=== PATIENT | female | born 1945 | race Caucasian/White ===

== ENCOUNTER 2016-08-07 13:41 | Inpatient (IN) | payer MEDICARE ==
[~2016-08-07] VITALS: Ht 165.1 cm; Wt 90.5 kg
[2016-10-03] MEDS ORDERED: LEVO50TA4 PO (08:17)
[2016-10-03] MEDS ORDERED: TRIA37.53 PO (08:17)
[2016-10-03] MEDS ORDERED: CITA40TA4 PO (08:18)
[2016-10-03] MEDS ORDERED: BIOT10TA PO (08:20)
[2016-10-03] MEDS ORDERED: ZANT150T2 PO (08:21)
[2016-10-03] MEDS ORDERED: LOPE2CAP PO (08:25)
[2016-10-03] MEDS ORDERED: ZOFR4TAB PO (08:29)
[2016-10-03] MEDS ORDERED: LORA-373 PO (08:30)
[2016-12-16] MEDS ORDERED: VITA500T49 PO (11:23)
[2016-12-16] MEDS ORDERED: VITA100T50 PO ×2 (11:23→11:26)
[2016-12-16] MEDS ORDERED: POTA550T2 PO (11:25)
[2016-12-16] MEDS ORDERED: FERR1TAB58 PO (11:25)
[2016-12-16] MEDS ORDERED: BENT20TA PO (11:28)
[2016-12-16] MEDS ORDERED: OXYC1CAP PO (11:29)
[2016-12-17] VITALS (7 sets, daily range): BP systolic 114–150; BP diastolic 54–68; PULSE 90–105; RESP 16–18; TEMP 96.6–99.1; O2SAT 97–99
[2016-12-17] MEDS ORDERED: ROPIVACAINE 0.5% PF INJ 30 ML VIAL NB ONE (08:10)
--- NOTE | 2016-12-17 08:18 | MH ---
cc: ARIA SELLERS DATE OF ADMISSION: 12/17/2016 ADMISSION DIAGNOSIS Osteoarthritis left knee. HISTORY This is a 71-year-old female with significant left knee pain. Investigative studies showed evidence of extensive arthritis left knee with a marked deformity. Despite conservative care the patient is painful and symptomatic. She presents for surgical treatment. PAST MEDICAL HISTORY, SOCIAL HISTORY, FAMILY HISTORY, REVIEW OF SYSTEMS See attached notes. PHYSICAL EXAMINATION General: Average build female in moderate distress with her left knee. HEENT: Normocephalic, atraumatic. Pupils equal, round, reactive to light and accommodation. Extraocular motions intact. Neck: Supple. Chest: Clear. Heart: Regular rate and rhythm. Abdomen: Soft, nontender with normoactive bowel sounds. Musculoskeletal: Examination of the left knee shows pain with range of motion, mild deformity. Crepitus with range of motion. Neurologic and Vascular Examination: Within normal limits. IMPRESSION Osteoarthritis left knee. PLAN 1. Left total knee replacement arthroplasty. 2. Need of 2 units fresh-frozen plasma preop per Hematology/Oncology CONSENT There are risks with surgery including infection, bleeding, loss of motion, continued pain, need for further surgery, neurologic and vascular injury. The patient understands these issues and wishes to press on with the surgery as outlined above. MD AARON Silva/KATI /10:56 PM /8:12 AM
[2016-12-17] MEDS: EXPAREL PERI-ARTICULAR INJECTION (TOTAL VOL. 60 ML) P-ARTICULR SCH ×4 (09:00→13:29)
[2016-12-17] MEDS: SODIUM CHLORIDE 0.9% IV SCH ×2 (09:00→12:48)
[2016-12-17] MEDS: POVIDONE IODINE 7.5% SCRUB 118 ML BOTTLE TOP SCH (09:00)
[2016-12-17] MEDS ORDERED: INSULIN HUMAN REGULAR 1,000 UNITS/10 ML VIAL SQ PRN (09:00)
[2016-12-17] MEDS ORDERED: VANCOMYCIN 1000 MG/NS 250 ML (for <70 kg) IV SCH ×2 (09:00)
[2016-12-17] MEDS: TRANEXAMIC ACID IV SCH ×2 (09:00→12:48)
[2016-12-17] MEDS ORDERED: METOPROLOL TARTRATE 25 MG TAB PO PRN (09:00)
[2016-12-17] MEDS ORDERED: SODIUM CHLORID 0.9% 500 ML IV SCH (09:00)
[2016-12-17] MEDS ORDERED: LACTATED RINGER'S 1000 ML IV SCH (09:00)
[2016-12-17] MEDS ORDERED: ceFAZolin 2 GM PREMIX 50 ML IV SCH (09:00)
[2016-12-17] MEDS ORDERED: GENTAMICIN SULFATE 80 MG/2 ML VIAL ONE (10:41)
[2016-12-17 12:03] LABS: AUTOMATED NEUTROPHIL # 2.6 TH/MM3 (1.8-7.7); BASOPHIL % 0.4 % (0.0-2.0); EOSINOPHIL # 0.1 TH/MM3 (0-0.4); EOSINOPHIL % 1.5 % (0.0-4.0); LYMPH % 18.1 % (9.0-44.0); LYMPHOCYTE # 0.7 TH/MM3 (1.0-4.8); MEAN CELL VOLUME 97.4 FL (80.0-100.0); MEAN CORPUSCULAR HEMOGLOBIN 33.7 PG (27.0-34.0); MEAN CORPUSCULAR HGB CONC 34.6 % (32.0-36.0); MONO % 8.3 % (0.0-8.0); NEUT % 71.7 % (16.0-70.0); RED BLOOD COUNT 3.36 MIL/MM3 (4.00-5.30); RED CELL DISTRIBUTION WIDTH 15.1 % (11.6-17.2); WHITE BLOOD COUNT 3.6 TH/MM3 (4.0-11.0)
[2016-12-17 12:04] LABS: HEMO FLAGS AUTO DIFF
[2016-12-17 12:08] LABS: PLATELET COUNT 73 TH/MM3 (150-450)
[2016-12-17 12:09] LABS: HEMATOCRIT 32.7 % (35.0-46.0)
[2016-12-17 12:15] LABS: APTT (PATIENT) 33.1 SEC (24.3-30.1); INTERNATIONAL NORMALIZED RATIO 1.3 RATIO; PROTHROMBIN TIME - PATIENT 14.7 SEC (9.8-11.6)
[2016-12-17] MEDS ORDERED: FAMOTIDINE 20 MG/2 ML VIAL ONE (12:18)
[2016-12-17] MEDS ORDERED: MIDAZOLAM HCL 2 MG/2 ML VIAL ONE (12:18)
[2016-12-17 12:48] LABS: PLATELET ESTIMATE SMEAR LOW (NORMAL); PLATELET MORPHOLOGY NORMAL (NORMAL); SCAN/DIFF AUTO DIFF CONFIRMED
[2016-12-17] MEDS ORDERED: NEOSTIGMINE 3 MG/3 ML SYR IV ONE (13:25)
[2016-12-17] MEDS ORDERED: ONDANSETRON HCL 4 MG/2 ML VIAL IV PUSH ONE (13:25)
[2016-12-17] MEDS ORDERED: PROPOFOL 200 MG/20 ML AMP IV ONE (13:25)
[2016-12-17] MEDS ORDERED: LACTATED RINGER'S 1000 ML INJ 1,000 ML IV ONE (13:25)
--- NOTE | 2016-12-17 13:50 | EKG ---
Date Performed: 12/17/2016 Time Performed: 10:17:03 PTAGE: 71 years EKG: Sinus rhythm NONSPECIFIC T-WAVE ABNORMALITY BORDERLINE ECG Compared to prior tracing no significant change PREVIOUS TRACING : 09/04/2014 20.44 DOCTOR: Rosy Rubio Interpretating Date/Time 12/17/2016 13:48:23
[2016-12-17] MEDS ORDERED: ACETAMINOPHEN/HYDROcodone 325 MG/10 MG TAB PO PRN ×2 (15:00)
[2016-12-17] MEDS ORDERED: SODIUM CHLORIDE 0.9% FLUSH 5 ML FLUSH IVF PRN (15:00)
[2016-12-17] MEDS ORDERED: ALUMINUM/MAGNESIUM/SIMETH 30 ML CUP PO PRN (15:00)
[2016-12-17] MEDS ORDERED: MAGNESIUM HYDROXIDE SUSP 30 ML CUP PO PRN (15:00)
[2016-12-17] MEDS ORDERED: TEMAZEPAM 15 MG CAP PO PRN (15:00)
[2016-12-17] MEDS ORDERED: DICYCLOMINE HCL 20 MG TAB PO PRN (15:00)
[2016-12-17] MEDS ORDERED: ONDANSETRON HCL 4 MG/2 ML VIAL IVP PRN (15:00)
[2016-12-17] MEDS ORDERED: LORazepam 0.5 MG TAB PO PRN (15:00)
[2016-12-17] MEDS ORDERED: MORPHINE SULFATE 30 MG/30 ML PCA IV SCH (15:00)
[2016-12-17] MEDS ORDERED: NALOXONE HCL 0.4 MG/ML AMP IV PRN (15:00)
[2016-12-17] MEDS ORDERED: MISCELLANEOUS NURSING INFORMATION XX PRN (15:00)
[2016-12-17] MEDS ORDERED: LOPERAMIDE HCL 2 MG CAP PO PRN (15:00)
[2016-12-17] MEDS ORDERED: BISACODYL 10 MG SUPP PR PRN (15:00)
[2016-12-17] MEDS ORDERED: MORPHINE SULFATE 8 MG/ML INJ IV PUSH PRN (15:00)
--- NOTE | 2016-12-17 15:02 | PD.OP ---
cc: Ez Stallworth MD Operative Report Date of Surgery: Dec 17, 2016 Preoperative Diagnosis: Osteoarthritis left knee, severe Postoperative Diagnosis: Same Procedure: Left total knee replacement arthroplasty Anesthesia: Gen. Surgeon: Ez Stallworth Recreational Vehicle Repairer(s): VIRGINIA Olsen Operation and Findings: EBL: 200 cc INDICATION: This patient presents with long-standing arthritis of the knee. Attachment record documents conservative measures. The patient now presents for surgical treatment. NOTE: Brynn Olsen PA-C was present for the entire surgical procedure as my assistant operator. In my medical opinion her skill and care was necessary for proper management of this patient. TOURNIQUET TIME: 64 minutes COMPANY: [employer] FEMUR: Size 4, posterior cruciate retaining, left TIBIA: Size 3, fixed bearing PATELLA: 32 mm POLYETHYLENE INSERT: 13, plus 1 mm PROCEDURE: This patient was brought the operating room and anesthetized in the supine position. The patient was positioned supine on the table. The tourniquet was placed about the thigh, and the leg was scrubbed with alcohol followed by Hibiclens followed by ChloraPrep and draped sterilely. A timeout was done, and antibiotics were given. After exsanguination the tourniquet was inflated to 250 mmHg. An anterior incision was made and a median parapatellar arthrotomy was performed. The patella was released laterally and subluxed allowing freehand cut of the patella which was then sized. A metal cap was placed over the exposed patellar surface for protection. A airplane pilot commercial hole was placed in the distal femur allowing a 4 valgus cut removing 10 mm from the distal femur. Anterior posterior and chamfer cuts were made. The posterior stabilize osteotomy was made. The attention was directed to the tibia. Retractors were positioned. The external alignment guide was used allowing the lateral tibia to be used as referencing guide and cut utilizing an oscillating saw taking care to avoid any injury to the surrounding soft tissues. This was sized properly. Trial reduction showed that the insert fit nicely. The patient had range of motion extension 0 flexion 120. A medial release was not necessary. The bony surfaces prepared. On the back table 2 packets of methylmethacrylate were mixed. The components were cemented. Excess cement was removed. The tourniquet let down and hemostasis was controlled. The final plastic insert was inserted. Range of motion was the same as previously noted. A drain was brought through a separate stab incision. The arthrotomy was repaired with interrupted #1 Vicryl suture, subcutaneous tissue 2-0 Vicryl suture and skin with metallic rigoberto A sterile dressing was applied. Sponge counts, needle counts and instrument counts were all correct. The patient tolerated procedure well and was taken to recovery in satisfactory condition. FINDINGS: The patient had severe arthritis of the left knee. The final solution was excellent. Range of motion was excellent. No complication was appreciated Ez Stallworth MD Dec 17, 2016 15:02
[2016-12-17] MEDS ORDERED: XARE10TA PO (15:05)
[2016-12-17] MEDS ORDERED: OXYC-395 PO (15:05)
[2016-12-17] MEDS ORDERED: Post-op Orders (for Pharmacy) MISC XX ONE (15:36)
[2016-12-17] MEDS: LACTATED RINGER'S 1000 ML INJ 1,000 ML IV SCH (15:36)
[2016-12-17] MEDS ORDERED: DO NOT ADM ANY ANTICOAGULANT DRUGS XX PRN (15:45)
[2016-12-17] MEDS ORDERED: MORPHINE SULFATE 4 MG/ML INJ ONE (15:48)
[2016-12-17] MEDS ORDERED: fentaNYL CITRATE 250 MCG/5 ML AMP ONE ×2 (15:48)
--- NOTE | 2016-12-17 16:30 | RADRPT ---
EXAM DATE/TIME: 12/17/2016 15:45 [facility] COMPARISON: No previous studies available for comparison. INDICATIONS : Post op left knee replacement. MEDICAL HISTORY: None. SURGICAL HISTORY: Total knee replacement, left. ENCOUNTER: Initial ACUITY: 1 day PAIN SCORE: Non-responsive. LOCATION: Left knee. FINDINGS/ CONCLUSION: Two view left knee demonstrate patient has had total knee arthroplasty with good position. Surgical drain overlies the suprapatellar bursa. There is no complication. There is no fracture. Jason White MD on December 17, 2016 at 16:27 Board Certified Radiologist. This report was verified electronically.
[2016-12-17] MEDS: SODIUM CHLORIDE 0.9% FLUSH 5 ML FLUSH IVF SCH (21:00)
[2016-12-17] MEDS: PCA - TOTAL MG MORPHINE DELIVERED PER SHIFT SCH (22:00)
[2016-12-18] VITALS (8 sets, daily range): BP systolic 126–167; BP diastolic 55–63; PULSE 100–112; RESP 16–17; TEMP 97.5–99.4; O2SAT 95–99
[2016-12-18] MEDS: LACTATED RINGER'S 1000 ML INJ 1,000 ML IV SCH ×2 (03:25→15:55)
[2016-12-18] MEDS: PCA - TOTAL MG MORPHINE DELIVERED PER SHIFT SCH (06:00)
[2016-12-18] MEDS: LEVOTHYROXINE SODIUM 50 MCG TAB PO SCH (06:31)
[2016-12-18 07:44] LABS: REVIEW FLAG FINAL
[2016-12-18] MEDS ORDERED: PNEUMOCOCCAL POLYVALENT INJ 25 MCG/0.5 ML SYR IM ONE (09:00)
[2016-12-18] MEDS ORDERED: POTASSIUM GLUCONATE PO SCH (09:00)
[2016-12-18] MEDS: POVIDONE IODINE 7.5% SCRUB 118 ML BOTTLE TOP SCH (09:00)
[2016-12-18] MEDS: TRIAMTERENE/HCTZ 37.5 MG/25 MG CAP PO SCH (09:42)
[2016-12-18] MEDS: CITALOPRAM HYDROBROMIDE 40 MG TAB PO SCH (09:42)
[2016-12-18] MEDS: SODIUM CHLORIDE 0.9% FLUSH 5 ML FLUSH IVF SCH ×2 (09:42→20:48)
--- NOTE | 2016-12-18 10:45 | HHI.FF ---
Face to Face Verification Diagnosis: (1) Left knee pain (2) Osteoarthritis of left knee Physical Therapy Gait training, Safety evaluation, Transfer training, bed to chair Knee: Total knee, Protocol: Left, Full weight bearing Canvas Knee Splint: When in bed & 2 pillows btw thighs Additional Instructions PT 5 days/wk for 2 weeks. WBAT LLE. TKA protocol. CPM bid as tolerated, 0-70 w goal 100 degrees flexion Nursing RN Days per Week: 2 x Week(s): 1 Dressing Changes: Do not change dressing Additional Instructions Vitals assessment, dressing assessment - do not change unless saturated. Ok to shower pod#5 if kept sealed and dry. I have seen patient Nina Clinton on 12/18/16. My clinical findings support the need for the requested home health care services because: Limited ability to care for self High risk of falls I certify that my clinical findings support that this patient is homebound because: Post-op weakness Unsteady gait/balance Ez Stallworth MD Dec 18, 2016 10:45
[2016-12-18] MEDS ORDERED: CPMMACHINE (10:46)
[2016-12-18] MEDS ORDERED: WALKER WHEELS/F1 MIS (10:47)
--- NOTE | 2016-12-18 13:06 | PD.ORT.PN ---
Subjective Subjective Remarks Moderate left knee pain. 'Ok' when in bed but increased with PT. No new radiating leg pain. No CP or SOB. Questions about surgery. Objective Vitals Vital Signs Date Time Temp Pulse Resp B/P Pulse Ox O2 Delivery O2 Flow Rate FiO2 12/18/16 12:00 98.9 107 17 137/59 96 12/18/16 08:00 98.2 102 16 126/55 98 12/18/16 06:00 16 12/18/16 04:01 99.1 103 17 146/59 97 12/18/16 00:02 97.7 100 17 131/58 99 12/17/16 22:00 16 12/17/16 20:01 96.6 105 17 150/68 98 12/17/16 19:29 Nasal Cannula 2.00 12/17/16 18:35 98.3 97 18 138/63 97 Nasal Cannula 2 12/17/16 18:30 97 18 138/63 97 Nasal Cannula 2 12/17/16 18:23 22 12/17/16 18:15 99 18 135/68 97 Nasal Cannula 2 12/17/16 18:00 100 20 129/62 96 Nasal Cannula 2 12/17/16 17:45 101 20 115/58 96 Nasal Cannula 2 12/17/16 17:30 105 20 139/63 97 Nasal Cannula 2 12/17/16 17:15 106 20 140/63 94 Nasal Cannula 2 12/17/16 17:00 104 20 140/62 95 Nasal Cannula 2 12/17/16 16:45 105 20 144/69 94 Nasal Cannula 2 12/17/16 16:30 104 20 144/66 95 Nasal Cannula 2 12/17/16 16:15 103 20 139/65 94 Nasal Cannula 2 12/17/16 16:00 103 22 138/65 94 Nasal Cannula 2 12/17/16 15:45 110 22 147/60 94 Nasal Cannula 2 12/17/16 15:36 98.3 117 22 151/73 93 Nasal Cannula 2 I/O 12/17/16 12/17/16 12/17/16 12/18/16 12/18/16 12/18/16 07:00 15:00 23:00 07:00 15:00 23:00 Intake Total 1790 ml 520 ml Output Total 705 ml 250 ml Balance 1085 ml 270 ml Intake Oral 120 ml 240 ml IV Total 370 ml 280 ml Other 1300 ml Output Urine Total 325 ml 200 ml Drainage Total 180 ml 50 ml Estimated Blood Loss 200 ml # Bowel Movements 0 0 Result Diagram: 12/18/16 0634 Imaging Last 24 hours Impressions Knee X-Ray 12/17/16 1455 Signed Impressions: Service Date/Time: Saturday, December 17, 2016 15:45 - CONCLUSION: Two view left knee demonstrate patient has had total knee arthroplasty with good position. Surgical drain overlies the suprapatellar bursa. There is no complication. There is no fracture. Jason White MD Objective Remarks Laying in bed On CPM No acute distress VSS LLE Dressing c/d/i, drain in place, mild swelling thigh and calf both supple, neg homans +motor ehl, +sens, +nvi Assessment & Plan Ortho Post Op Day #: 1 Problem List: Assessment and Plan pod#1 s/p L TKA D/C [employer] - change to po pain meds. D/C left knee drain. Ok to change drain dressing only. Hold dressing changes otherwise unless saturated. PT - WBAT RLE. Anterior orni precautions. Xarelto 10mg qd. D/C planning, HHC vs. SNF friday. DME written. Lotus Keyes Dec 18, 2016 13:06 Lotus Keyes Dec 18, 2016 13:06 Lotus Keyes Dec 18, 2016 13:06
[2016-12-18] MEDS ORDERED: RIVAROXABAN 10 MG TAB PO SCH (14:00)
[2016-12-18] MEDS: MULTIVITAMINS/MINERALS THERAPEUTIC TAB PO SCH (20:47)
[2016-12-18] MEDS: DOCUSATE SODIUM 100 MG CAP PO SCH (20:47)
[2016-12-19] VITALS (8 sets, daily range): BP systolic 126–162; BP diastolic 61–74; PULSE 99–122; RESP 16–18; TEMP 98.3–100; O2SAT 92–96
[2016-12-19] MEDS: LACTATED RINGER'S 1000 ML INJ 1,000 ML IV SCH ×2 (04:25→16:55)
[2016-12-19] MEDS: LEVOTHYROXINE SODIUM 50 MCG TAB PO SCH (05:08)
[2016-12-19] MEDS: POVIDONE IODINE 7.5% SCRUB 118 ML BOTTLE TOP SCH (09:00)
--- NOTE | 2016-12-19 09:01 | HHI.DCPOC ---
Discharge Care Plan Diagnosis: (1) Left knee pain (2) Osteoarthritis of left knee Your Health Problems Are: Incision/Drains Goals to Promote Your Health * To prevent worsening of your condition and complications * To maintain your health at the optimal level Directions to Meet Your Goals Take your medications as prescribed Follow your dietary instruction Follow activity as directed Keep your appointments as scheduled Take your immunizations and boosters as scheduled If your symptoms worsen call your PCP, if no PCP go to Urgent Care Center or Emergency Room Smoking is Dangerous to Your Health. Avoid second hand smoke Call the 24-hour hour crisis hotline for domestic abuse at Lotus Keyes Dec 19, 2016 09:01
--- NOTE | 2016-12-19 09:03 | HHI.DS ---
Discharge Summary Admission Date Dec 17, 2016 at 07:59 Discharge Date: Dec 21, 2016 Admitting Diagnosis see below Diagnosis: (1) Left knee pain Diagnosis: Principal (2) Osteoarthritis of left knee Diagnosis: Principal Procedures Left total knee arthroplasty Brief History This is a 71 year old female patient with a history of left knee pain. She sought out medical care when she began struggling with daily activities and walking short distances. Imaging studies showed moderate osteoarthritis of the left knee. Conservative measures were pursued including medications and injections. She continued to struggle so surgical treatment was recommended. She elected to move forward. CBC/BMP: 12/18/16 0634 Significant Findings Laboratory Tests Test 12/17/16 12/18/16 11:53 06:34 White Blood Count 3.6 TH/MM3 (4.0-11.0) Red Blood Count 3.36 MIL/MM3 (4.00-5.30) Hemoglobin 11.3 GM/DL 9.5 GM/DL (11.6-15.3) (11.6-15.3) Hematocrit 32.7 % 27.0 % (35.0-46.0) (35.0-46.0) Platelet Count 73 TH/MM3 (150-450) Neutrophils (%) (Auto) 71.7 % (16.0-70.0) Monocytes (%) (Auto) 8.3 % (0.0-8.0) Lymphocytes # (Auto) 0.7 TH/MM3 (1.0-4.8) Platelet Estimate LOW (NORMAL) Prothrombin Time 14.7 SEC (9.8-11.6) Activated Partial 33.1 SEC Thromboplast Time (24.3-30.1) PE at Discharge Laying in bed On CPM No acute distress VSS LLE Dressing c/d/i, drain in place, mild swelling thigh and calf both supple, neg homans +motor ehl, +sens, +nvi Hospital Course Surgical treatment was performed on the day of admission without complication. She recovered well in PACU and was transferred to the orthopaedic floor. Pain was controlled with IV and oral medications. DVT prophylaxis was initiated pod# 1. She was compliant with physical therapy and all TKA precautions. After 4 days she was found to be stable and discharged home with home health care with instruction to continue therapy and pursue a high fiber diet. Pt Condition on Discharge: Stable Discharge Disposition: Disch w/ Home Health Serv Discharge Instructions Diet Instructions: As Tolerated, No Restrictions, High Fiber Diet Activities You Can Perform: Weight Bearing as Susanne Activities to Avoid: Strenuous Activity Additional Activity Instruc.: TKA protocol New Medications: CPM-Continuous Passive Motion Machine (CPM-Continuous Passive Motion Machine) 1 Ea Device 1 EA .ROUTE DIRECTED #1 Ref 0 EA Oxycodone (Oxycodone) 10 Mg Tab 10 MG PO Q4H PRN PAIN #50 Ref 0 TAB Walker with Front Wheels (Walker with Front Wheels) 1 Mis Mis 1 EA .ROUTE DIRECTED #1 Ref 0 EA Rivaroxaban (Xarelto) 10 Mg Tab 10 MG PO Q24H Prevent Blood Clot #15 TAB Continued Medications: Biotin (Biotin) 10 Mg Tab 10 MG PO DAILY Nutritional Supplement #1 Ref 0 BOTTLE Citalopram (Citalopram) 40 Mg Tab 40 MG PO DAILY Control Depression #30 Ref 0 TAB Cyanocobalamin (Vitamin B12) 500 Mcg Tab 1000 MCG PO DAILY #1 BOTTLE Dicyclomine (Bentyl) 20 Mg Tab 20 MG PO DAILY PRN DIARRHEA Ref 0 TAB Ferrous Sulfate (Iron) 50 Mg Tab 54 MG PO DAILY Nutritional Supplement Ref 0 TAB Levothyroxine (Levothyroxine) 50 Mcg Tab 50 MCG PO DAILY Thyroid #30 Ref 0 TAB Loperamide (Loperamide) 2 Mg Cap 2 MG PO DIRECTED One capsule after each loose stool. Not to exceed 8 capsules per day. PRN DIARRHEA Ref 0 CAP Lorazepam (Lorazepam) 0.5 Mg Tab 0.5 MG PO HS PRN ANXIETY AND/OR INSOMNIA Ref 0 TAB Ondansetron (Zofran) 4 Mg Tab 4 MG PO Q8HR PRN NAUSEA OR VOMITING Ref 0 TAB Oxycodone (Oxycodone) 5 Mg Cap 5 MG PO Q8H PRN PAIN Ref 0 CAP Phytonadione (Vitamin K) 100 Mcg Tab Unknown Dose PO DAILY Potassium Gluconate (Potassium Gluconate) 550 Mg Tab 1650 MG PO DAILY Ranitidine (Zantac) 150 Mg Tab 150 MG PO DAILY PRN REFLUX #60 Ref 0 TAB Triamterene-Hydrochlorothiazide (Triamterene-Hydrochlorothiazide) 37.5-25 Mg Cap 1 CAP PO DAILY #30 Ref 0 CAP Lotus Keyes Dec 19, 2016 09:03
--- NOTE | 2016-12-19 09:09 | PD.ORT.PN ---
Subjective Subjective Remarks Moderate left knee pain but becoming more tolerable. Able to get more rest last night. No new radiating leg pain. Urinating well. No BM but passing gas. Appetite ok. No CP or SOB. Currently prefers to d.c home w [facility]. Objective Vitals Vital Signs Date Time Temp Pulse Resp B/P Pulse Ox O2 Delivery O2 Flow Rate FiO2 12/19/16 08:06 98.9 107 18 130/61 93 12/19/16 04:01 98.9 112 17 142/64 96 12/19/16 00:01 99.1 122 17 162/71 96 12/18/16 20:45 Nasal Cannula 2.00 21 12/18/16 20:01 99.4 112 17 167/63 98 12/18/16 16:12 95 21 12/18/16 15:23 97.5 107 17 160/58 95 12/18/16 13:37 16 12/18/16 12:00 98.9 107 17 137/59 96 12/18/16 11:30 96 I/O 12/18/16 12/18/16 12/18/16 12/19/16 12/19/16 12/19/16 07:00 15:00 23:00 07:00 15:00 23:00 Intake Total 520 ml 960 ml 360 ml Output Total 250 ml 150 ml Balance 270 ml 810 ml 360 ml Intake Oral 240 ml 960 ml 360 ml IV Total 280 ml Output Urine Total 200 ml Drainage Total 50 ml 150 ml # Voids 3 3 # Bowel Movements 0 0 0 Result Diagram: 12/18/16 0634 Imaging Last 24 hours Impressions Knee X-Ray 12/17/16 1455 Signed Impressions: Service Date/Time: Saturday, December 17, 2016 15:45 - CONCLUSION: Two view left knee demonstrate patient has had total knee arthroplasty with good position. Surgical drain overlies the suprapatellar bursa. There is no complication. There is no fracture. Jason White MD Procedures Left total knee arthroplasty Objective Remarks Laying in bed CKS in place No acute distress VSS LLE Dressing c/d/i, drain removed and site clean, mild swelling thigh and calf both supple, neg homans +motor ehl, +sens, +nvi Assessment & Plan Ortho Post Op Day #: 2 Problem List: (1) Left knee pain (2) Osteoarthritis of left knee Assessment and Plan pod#2 s/p L TKA PO pain meds as needed. Less groggy now that she is off ST[employer] CLE[employer]ER. Hold dressing changes unless saturated. Drain was removed and site is clean and dry today. PT - WBAT RLE. TKA precautions. Xarelto 10mg qd. D/C planning, HHC vs. SNF friday. She currently prefers to d/c home w [facility]. F2F written. DME written. Lotus Keyes Dec 19, 2016 09:09
[2016-12-19] MEDS: DOCUSATE SODIUM 100 MG CAP PO SCH (09:53)
[2016-12-19] MEDS: MULTIVITAMINS/MINERALS THERAPEUTIC TAB PO SCH (09:53)
[2016-12-19] MEDS: CITALOPRAM HYDROBROMIDE 40 MG TAB PO SCH (09:54)
[2016-12-19] MEDS: SODIUM CHLORIDE 0.9% FLUSH 5 ML FLUSH IVF SCH (09:54)
[2016-12-19] MEDS: TRIAMTERENE/HCTZ 37.5 MG/25 MG CAP PO SCH (09:54)
--- NOTE | 2016-12-19 12:35 | HHI.PR ---
Vitals/Results Intake & Output 12/18/16 12/18/16 12/19/16 15:00 23:00 07:00 Intake Total 960 ml 360 ml Output Total 150 ml Balance 810 ml 360 ml Intake Oral 960 ml 360 ml Drainage Total 150 ml # Voids 3 3 # Bowel Movements 0 0 Vital Signs Vital Signs Date Time Temp Pulse Resp B/P Pulse Ox O2 Delivery O2 Flow Rate FiO2 12/19/16 09:19 92 21 12/19/16 08:06 98.9 107 18 130/61 93 12/19/16 04:01 98.9 112 17 142/64 96 12/19/16 00:01 99.1 122 17 162/71 96 12/18/16 20:45 Nasal Cannula 2.00 21 12/18/16 20:01 99.4 112 17 167/63 98 12/18/16 16:12 95 21 12/18/16 15:23 97.5 107 17 160/58 95 12/18/16 13:37 16 CBC/BMP: 12/18/16 0634 Claudia Boggs Dec 19, 2016 12:35
[2016-12-20] VITALS (7 sets, daily range): BP systolic 110–154; BP diastolic 57–65; PULSE 98–107; RESP 18–20; TEMP 98.1–99.9; O2SAT 93–96
[2016-12-20] MEDS: LEVOTHYROXINE SODIUM 50 MCG TAB PO SCH (06:00)
[2016-12-20] MEDS: CITALOPRAM HYDROBROMIDE 40 MG TAB PO SCH (08:21)
[2016-12-20] MEDS: DOCUSATE SODIUM 100 MG CAP PO SCH ×2 (08:21→21:37)
[2016-12-20] MEDS: TRIAMTERENE/HCTZ 37.5 MG/25 MG CAP PO SCH (08:22)
[2016-12-20] MEDS: MULTIVITAMINS/MINERALS THERAPEUTIC TAB PO SCH ×2 (08:22→21:37)
[2016-12-20] MEDS: SODIUM CHLORIDE 0.9% FLUSH 5 ML FLUSH IVF SCH ×2 (08:22→21:37)
--- NOTE | 2016-12-20 12:29 | PD.ORT.PN ---
Subjective Post Op Day #: 3 Subjective Remarks having pain and oxycodone makes her extremely drowsy. not doing much in PT. Objective Vitals Vital Signs Date Time Temp Pulse Resp B/P Pulse Ox O2 Delivery O2 Flow Rate FiO2 12/20/16 10:15 96 21 12/20/16 08:00 98.2 103 18 133/63 95 12/20/16 04:12 98.1 105 19 134/64 93 12/20/16 00:00 99.9 107 20 154/65 93 12/19/16 21:44 95 12/19/16 20:00 100.0 104 18 142/66 94 12/19/16 16:30 98.3 99 16 132/69 96 I/O 12/19/16 12/19/16 12/19/16 12/20/16 12/20/16 12/20/16 07:00 15:00 23:00 07:00 15:00 23:00 Intake Total 360 ml 980 ml 240 ml Balance 360 ml 980 ml 240 ml Intake Oral 360 ml 980 ml 240 ml # Voids 3 5 2 # Bowel Movements 0 1 Result Diagram: 12/18/16 0634 Imaging Last 24 hours Impressions Knee X-Ray 12/17/16 1455 Signed Impressions: Service Date/Time: Saturday, December 17, 2016 15:45 - CONCLUSION: Two view left knee demonstrate patient has had total knee arthroplasty with good position. Surgical drain overlies the suprapatellar bursa. There is no complication. There is no fracture. Jason White MD Procedures Left total knee arthroplasty Objective Remarks Laying in bed CKS in place No acute distress VSS LLE Dressing c/d/i, mild swelling thigh and calf both supple, neg homans +motor ehl, +sens, +nvi Assessment & Plan Ortho Post Op Day #: 3 Problem List: (1) Left knee pain (2) Osteoarthritis of left knee Assessment and Plan pod#3 s/p L TKA PO pain meds as needed. Less groggy now that she is off [employer]PA[employer]ER. try tramadol. Hold dressing changes unless saturated. Drain was removed and site is clean and dry today. PT - WBAT RLE. TKA precautions. Xarelto 10mg qd. D/C planning, HHC vs. SNF. She currently prefers to d/c home w [facility]. hold d/c today and plan for Friday . Needs to do more with PT. F2F written. DME written. Golden Angeles Dec 20, 2016 12:29
[2016-12-20] MEDS: traMADol HCL 50 MG TAB PO PRN ×2 (15:54→21:36)
[2016-12-20] MEDS: LACTATED RINGER'S 1000 ML INJ 1,000 ML IV SCH (17:55)
[2016-12-21] VITALS: BP 121/57; PULSE 94; RESP 18; TEMP 98.8; O2SAT 94
[2016-12-21] MEDS: traMADol HCL 50 MG TAB PO PRN ×2 (03:41→08:07)
[2016-12-21] MEDS: LEVOTHYROXINE SODIUM 50 MCG TAB PO SCH (03:57)
[2016-12-21 04:00] VITALS: BP 108/52; PULSE 93; RESP 20; TEMP 98.3; O2SAT 94
[2016-12-21] MEDS: LACTATED RINGER'S 1000 ML INJ 1,000 ML IV SCH ×2 (06:25→07:06)
[2016-12-21 07:28] VITALS: BP 116/67; PULSE 94; RESP 18; TEMP 98.1; O2SAT 93
--- NOTE | 2016-12-21 07:37 | PD.ORT.PN ---
Subjective Subjective Remarks pt is doing better, ready to be discharged home today Objective Vitals Vital Signs Date Time Temp Pulse Resp B/P Pulse Ox O2 Delivery O2 Flow Rate FiO2 12/21/16 04:00 98.3 93 20 108/52 94 12/21/16 00:00 98.8 94 18 121/57 94 12/20/16 20:00 99.5 98 20 110/57 94 12/20/16 16:00 99.0 106 20 140/65 95 12/20/16 12:00 99.0 100 18 126/59 94 12/20/16 10:15 96 21 12/20/16 08:00 98.2 103 18 133/63 95 I/O 12/20/16 12/20/16 12/20/16 12/21/16 12/21/16 12/21/16 07:00 15:00 23:00 07:00 15:00 23:00 Intake Total 240 ml 600 ml 240 ml Balance 240 ml 600 ml 240 ml Intake Oral 240 ml 600 ml 240 ml # Voids 2 3 3 # Bowel Movements 1 1 0 Result Diagram: 12/18/16 0634 Imaging Last 24 hours Impressions Knee X-Ray 12/17/16 1455 Signed Impressions: Service Date/Time: Saturday, December 17, 2016 15:45 - CONCLUSION: Two view left knee demonstrate patient has had total knee arthroplasty with good position. Surgical drain overlies the suprapatellar bursa. There is no complication. There is no fracture. Jason White MD Procedures Left total knee arthroplasty Objective Remarks seen by Dr. Manuelito Stallworth left knee dressings dry and intact CKS in place LLE thigh and calf both supple, neg homans +motor ehl, +sens, +nvi Assessment & Plan Problem List: (1) Left knee pain (2) Osteoarthritis of left knee Assessment and Plan pod#4 s/p L TKA Hold dressing changes unless saturated. PT - WBAT RLE. TKA precautions. Xarelto 10mg qd. discharge home today with [facility], orthopedically stable Christen Washington Dec 21, 2016 07:19
[2016-12-21] MEDS: MULTIVITAMINS/MINERALS THERAPEUTIC TAB PO SCH (08:06)
[2016-12-21] MEDS: TRIAMTERENE/HCTZ 37.5 MG/25 MG CAP PO SCH (08:06)
[2016-12-21] MEDS: DOCUSATE SODIUM 100 MG CAP PO SCH (08:07)
[2016-12-21] MEDS: CITALOPRAM HYDROBROMIDE 40 MG TAB PO SCH (08:07)
[2016-12-21] MEDS: SODIUM CHLORIDE 0.9% FLUSH 5 ML FLUSH IVF SCH (08:15)
== END 2016-12-21 13:37 | disposition home health service (06) | DRG 470 ==
LOC: HSDI 12-17 07:59 → N06B 12-17 18:57
PROVIDERS: ADMIT Orthopaedic Surgery Orthopaedic Surgery of the Spine; ATTEND Orthopaedic Surgery Orthopaedic Surgery of the Spine
PROC: 0QRF0JZ Replacement of Left Patella with Synthetic Substitute, Open Approach (ICD-10-PCS; 2016-12-17)
PROC: 3E0T3CZ (ICD-10-PCS; 2016-12-17)
PROC: 30233P1 Transfusion of Nonautologous Frozen Red Cells into Peripheral Vein, Percutaneous Approach (ICD-10-PCS; 2016-12-17)
PROC: 0SRD0J9 Replacement of Left Knee Joint with Synthetic Substitute, Cemented, Open Approach (ICD-10-PCS; principal; 2016-12-17 12:33)
DX: M17.12 Unilateral primary osteoarthritis, left knee (principal); D68.4 Acquired coagulation factor deficiency; I10 Essential (primary) hypertension; K21.9 Gastro-esophageal reflux disease without esophagitis; E73.9 Lactose intolerance, unspecified; K76.9 Liver disease, unspecified; E66.9 Obesity, unspecified; F32.9 Major depressive disorder, single episode, unspecified; Z23 Encounter for immunization; Z68.33 Body mass index [BMI] 33.0-33.9, adult; Z86.718 Personal history of other venous thrombosis and embolism; Z86.73 Personal history of transient ischemic attack (TIA), and cerebral infarction without residual deficits; Z88.5 Allergy status to narcotic agent
CPT/HCPCS: 36415; 36430; 73560; 85014; 85018; 85025; 85610; 85730; 86850; 86900; 86901; 86920; 86927; 90471; 90732; 93005; 94150; C1776; C9290; G0009; J0690; J1580; J2250; J2270; J2405; J2710; J2795; J3010; J3370; J7050; J7120; L1830; P9017

== ENCOUNTER 2016-12-26 13:16 | Emergency (ER) | payer MEDICARE, OTHER ==
[~2016-12-26] VITALS: Ht 165.1 cm; Wt 81.8 kg
[~2016-12-26 13:16] MED LIST: BENT20TA PO; BIOT10TA PO; CITA40TA4 PO; CPMMACHINE; FERR1TAB58 PO; LEVO50TA4 PO; LOPE2CAP PO; LORA-373 PO; OXYC-395 PO; OXYC1CAP PO; POTA550T2 PO; TRIA37.53 PO; VITA100T50 PO; VITA500T49 PO; WALKER WHEELS/F1 MIS; ZANT150T2 PO; ZOFR4TAB PO
[2016-12-26 13:17] VITALS: BP 139/65; PULSE 93; RESP 14; TEMP 98.4; O2SAT 97
[2016-12-26 13:55] VITALS: RESP 17; O2SAT 98
--- NOTE | 2016-12-26 14:00 | PD ---
HPI Chief Complaint: Edema Time Seen by Provider: 13:29 Travel History International Travel<30 days: No Contact w/Intl Traveler<30days: No Traveled to known affect area: No History of Present Illness HPI This is a 71-year-old female who status post left knee total knee replacement on 12/17/2016, who presents here stating she was told to come here for evaluation for possible deep venous thrombosis of the left lower extremity. The patient reports that she's had swelling of her knee for a few days. She denies any fevers although states she felt hot. She also reports that she's had drainage and redness appearing over her surgical scar over the last several days. She states that she was at [facility] today and had an ultrasound to rule out DVT and when she arrived home was called by Dr. Yañez 's physician power plant assistant told to come to the hospital for possible admission. She was unsure what the results of her ultrasound were. The patient has had previous he venous thrombosis in the past. She states that she was more concerned of an infection versus a DVT. PFSH Past Medical History Hx Anticoagulant Therapy: No Cancer: No Cardiovascular Problems: No Chemotherapy: No Cerebrovascular Accident: No Diabetes: No Endocrine: Yes Gastrointestinal Disorders: Yes (GERD) Genitourinary: No Hepatitis: No Hiatal Hernia: No Hypertension: No Immune Disorder: No Musculoskeletal: Yes (ARTHRITIS, bilat knee pain, BACK PAIN) Neurologic: Yes (STROKE) Psychiatric: Yes (ANXIETY/DEPRESSION) Reproductive: No Respiratory: No Thyroid Disease: Yes Menopausal: Yes Past Surgical History Abdominal Surgery: Yes (CHOLECYSTECTOMY) AICD: No Body Medical Devices: IVC FILTER, STIMULATOR IN BACK, POSSIBLE SCREW IN BACK Cardiac Surgery: Yes (IVC FILTER) Cholecystectomy: Yes Ear Surgery: No Endocrine Surgery: No Eye Surgery: No Genitourinary Surgery: No Gynecologic Surgery: Yes (C SECTION, COMPLETE HYSTERECTOMY) Hysterectomy: Yes Joint Replacement: No Neurologic Surgery: Yes (ANT. CERVICAL FUSION) Oral Surgery: Yes (TONSILLECTOMY) Pacemaker: No Thoracic Surgery: No Other Surgery: Yes Social History Alcohol Use: Yes (OCCASSIONALLY) Tobacco Use: No Substance Use: No Allergies-Medications (Allergen,Severity, Reaction): Coded Allergies: Adhesives (Verified Allergy, Severe, PULLS SKIN OFF, 12/26/16) Lovenox (Verified Allergy, Severe, Itching AND HIVES, 12/26/16) Lactose (Verified Adverse Reaction, Severe, DIARRHEA, 12/26/16) Percocet (Verified Adverse Reaction, Severe, PT STATES SHE SLEEPS ALL THE TIME ,"KNOCKS HER OUT", 12/26/16) Xanax (Verified Adverse Reaction, Severe, HALLUCINATIONS,CONFUSION, 12/26/16 ) Reported Meds & Prescriptions Reported Meds & Active Scripts Active Cleocin (Clindamycin HCl) 300 Mg Cap 300 Mg PO Q6H CPM-Continuous Passive Motion Machine 1 Ea Device 1 Ea .ROUTE DIRECTED Oxycodone (Oxycodone HCl) 10 Mg Tab 10 Mg PO Q4H PRN Reported Oxycodone (Oxycodone HCl) 5 Mg Cap 5 Mg PO Q8H PRN Bentyl (Dicyclomine HCl) 20 Mg Tab 20 Mg PO DAILY PRN Potassium Gluconate 550 Mg Tab 1,650 Mg PO DAILY Iron (Ferrous Sulfate) 50 Mg Tab 54 Mg PO DAILY Vitamin B12 (Cyanocobalamin) 500 Mcg Tab 1,000 Mcg PO DAILY Vitamin K (Phytonadione) 100 Mcg Tab Unknown Dose PO DAILY Lorazepam 0.5 Mg Tab 0.5 Mg PO HS PRN Zofran (Ondansetron HCl) 4 Mg Tab 4 Mg PO Q8HR PRN Loperamide (Loperamide HCl) 2 Mg Cap 2 Mg PO DIRECTED PRN One capsule after each loose stool. Not to exceed 8 capsules per day. Zantac (Ranitidine HCl) 150 Mg Tab 150 Mg PO DAILY PRN Biotin 10 Mg Tab 10 Mg PO DAILY Citalopram (Citalopram Hydrobromide) 40 Mg Tab 40 Mg PO DAILY Levothyroxine (Levothyroxine Sodium) 50 Mcg Tab 50 Mcg PO DAILY Triamterene-Hydrochlorothiazide 37.5-25 Mg Cap 1 Cap PO DAILY Review of Systems Except as stated in HPI: all other systems reviewed are Neg General / Constitutional: No: Fever (although feels warm), Chills ( which is more than usual.) HENT: No: Headaches, Lightheadedness Cardiovascular: No: Chest Pain or Discomfort, Palpitations Respiratory: No: Cough, Shortness of Breath Gastrointestinal: No: Nausea, Vomiting, Diarrhea, Abdominal Pain Musculoskeletal: Positive: Limited ROM (secondary to swelling), Edema (of left knee), Pain (of left knee) Skin: Positive Other (redness and drainage from the left knee staple surgical area.) Neurologic: No: Weakness, Dizziness Physical Exam Narrative GENERAL: Well-developed well-nourished female in no acute respiratory distress. SKIN: Warm and dry. HEAD: Atraumatic. Normocephalic. EYES: No scleral icterus. No injection or drainage. ENT: Mucous membranes pink and moist. NECK: Trachea midline. No JVD. CARDIOVASCULAR: Regular rate and rhythm. No murmur appreciated. RESPIRATORY: Clear to auscultation. Breath sounds equal bilaterally. GASTROINTESTINAL: Abdomen soft, non-tender, nondistended. Hepatic and splenic margins not palpable. MUSCULOSKELETAL: On examination of the patient's left lower extremity, there is significant edema noted when compared to the right. On her surgical site, there is yellow serous drainage noted coming from the surgical incision daniela. She has also a 4 x 5 cm area of blanching redness noted at the left lateral area of her surgical incision area. NEUROLOGICAL: Awake and alert. No obvious cranial nerve deficits. Motor grossly within normal limits. Normal speech. PSYCHIATRIC: Appropriate mood and affect; insight and judgment normal. Data Data Last Documented VS Vital Signs Date Time Temp Pulse Resp B/P Pulse Ox O2 Delivery O2 Flow Rate FiO2 12/26/16 14:19 89 17 130/61 98 Room Air 12/26/16:17 98.4 Orders Complete Blood Count With Diff (12/26/16 13:51) Comprehensive Metabolic Panel (12/26/16 13:51) Blood Culture (12/26/16 13:51) Wound Culture And Gram Stain (12/26/16 13:51) Iv Access Insert/Monitor (12/26/16 13:51) Ecg Monitoring (12/26/16 13:51) Oximetry (12/26/16 13:51) Lactic Acid Sepsis Protocol (12/26/16 14:12) Labs Laboratory Tests Test 12/26/16 14:00 White Blood Count 4.4 TH/MM3 Red Blood Count 2.95 MIL/MM3 Hemoglobin 9.9 GM/DL Hematocrit 27.9 % Mean Corpuscular Volume 94.6 FL Mean Corpuscular Hemoglobin 33.6 PG Mean Corpuscular Hemoglobin 35.5 % Concent Red Cell Distribution Width 15.1 % Platelet Count 133 TH/MM3 Mean Platelet Volume 7.5 FL Neutrophils (%) (Auto) 69.4 % Lymphocytes (%) (Auto) 14.3 % Monocytes (%) (Auto) 12.6 % Eosinophils (%) (Auto) 2.5 % Basophils (%) (Auto) 1.2 % Neutrophils # (Auto) 3.0 TH/MM3 Lymphocytes # (Auto) 0.6 TH/MM3 Monocytes # (Auto) 0.6 TH/MM3 Eosinophils # (Auto) 0.1 TH/MM3 Basophils # (Auto) 0.1 TH/MM3 CBC Comment DIFF FINAL Differential Comment Sodium Level 137 MEQ/L Potassium Level 3.7 MEQ/L Chloride Level 103 MEQ/L Carbon Dioxide Level 26.8 MEQ/L Anion Gap 7 MEQ/L Blood Urea Nitrogen 9 MG/DL Creatinine 0.78 MG/DL Estimat Glomerular Filtration 73 ML/MIN Rate Random Glucose 104 MG/DL Calcium Level 8.2 MG/DL Total Bilirubin 5.5 MG/DL Aspartate Amino Transf 49 U/L (AST/SGOT) Alanine Aminotransferase 30 U/L (ALT/SGPT) Alkaline Phosphatase 85 U/L Total Protein 5.4 GM/DL Albumin 3.0 GM/DL [facility] Medical Decision Making Medical Screen Exam Complete: Yes Emergency Medical Condition: Yes Interpretation(s) Ultrasound report from [facility] reports noncompressible and decreased color flow in both of the superficial femoral veins in the mid to distal thigh and the posterior tibial vein. This raises suspicion for possible thrombus. Differential Diagnosis DVT versus infection versus Narrative Course This is a 71-year-old female who status post left total knee replacement 9 days prior, who presents today with complaints of swelling. She was seen at [facility] and had an ultrasound that was questionable for thrombus. On examination here, the patient has blanching redness and yellow serous drainage noted from the staple site. The case was discussed with Dr. Daniela Stallworth. He states that the procedure he does requires appearance that could possibly be mistaken as cellulitis. He recommended that I call him with her white blood cell count. Her white blood cell count came back at 4.4. I called him and discussed the case with him. He states he feels comfortable this is likely not cellulitis. Also given the fact the patient has significant swelling, he is doubtful that she has a DVT. She does have a IVC filter in place. He did recommend that we discharge her and put her on clindamycin 300 mg 4 times daily 5 days. He states he'll see her in the office next week. She is instructed to return if she does any increased redness, fevers, chills, or any other reason that concerned her. Diagnosis Primary Impression: Swelling of left lower extremity Additional Impressions: Status post total left knee replacement Chronic anemia Additional Instructions: Take antibiotic as prescribed. Return if increased redness, pain, swelling, fevers, chills. Follow up with Dr. Yañez next week as scheduled. Med/Other Pt SpecificInfo: Prescription(s) given Scripts Clindamycin (Cleocin)300 Mg Oip468 Mg PO Q6H #20 CAP Ref 0 Prov:Cameron Archuleta MD 12/26/16 Disposition: 01 DISCHARGE HOME Condition: Stable Cameron Archuleta MD Dec 26, 2016 14:00
[2016-12-26 14:19] VITALS: BP 130/61; PULSE 89; RESP 17; O2SAT 98
[2016-12-26 14:23] LABS: BASOPHIL # 0.1 TH/MM3 (0-0.2); BASOPHIL % 1.2 % (0.0-2.0); EOSINOPHIL # 0.1 TH/MM3 (0-0.4); EOSINOPHIL % 2.5 % (0.0-4.0); HEMATOCRIT 27.9 % (35.0-46.0); HEMO FLAGS DIFF FINAL; LYMPH % 14.3 % (9.0-44.0); LYMPHOCYTE # 0.6 TH/MM3 (1.0-4.8); MEAN CELL VOLUME 94.6 FL (80.0-100.0); MEAN CORPUSCULAR HEMOGLOBIN 33.6 PG (27.0-34.0); MEAN CORPUSCULAR HGB CONC 35.5 % (32.0-36.0); MONO % 12.6 % (0.0-8.0); NEUT % 69.4 % (16.0-70.0); PLATELET COUNT 133 TH/MM3 (150-450); RED BLOOD COUNT 2.95 MIL/MM3 (4.00-5.30); RED CELL DISTRIBUTION WIDTH 15.1 % (11.6-17.2); WHITE BLOOD COUNT 4.4 TH/MM3 (4.0-11.0)
[2016-12-26 14:40] LABS: ALT (GPT) 30 U/L (10-53); ANION GAP 7 MEQ/L (5-15); AST (GOT) 49 U/L (15-37); BICARBONATE 26.8 MEQ/L (21.0-32.0); BLOOD UREA NITROGEN 9 MG/DL (7-18); CHLORIDE 103 MEQ/L (98-107); GLOMERULAR FILTRATION RATE 73 ML/MIN (>89); POTASSIUM 3.7 MEQ/L (3.5-5.1); SODIUM (NA) 137 MEQ/L (136-145)
[2016-12-26 14:42] LABS: ALKALINE PHOSPHATASE 85 U/L (45-117); TOTAL BILIRUBIN ADULT 5.5 MG/DL (0.2-1.0)
[2016-12-26] MEDS ORDERED: CLEO300C2 PO (14:58)
[2016-12-26 15:45] VITALS: BP 140/77; TEMP 97.8
== END 2016-12-26 15:52 | disposition home or self-care (01) ==
LOC: NEPC 13:16
DX: M25.462 Effusion, left knee (principal); Z96.652 Presence of left artificial knee joint; D64.9 Anemia, unspecified; Z86.718 Personal history of other venous thrombosis and embolism
CPT/HCPCS: 80053; 85025; 87040; 87070

== ENCOUNTER 2017-08-20 08:25 | Inpatient (IN) | payer OTHER, MEDICARE ==
[~2017-08-20] VITALS: Ht 177.8 cm; Wt 79.3 kg
[2017-08-20] VITALS (8 sets, daily range): BP systolic 108–151; BP diastolic 54–90; PULSE 73–93; RESP 12–18; TEMP 97.3–99.2; O2SAT 94–100
[~2017-08-20 08:25] MED LIST changes: +CLEO300C2 PO; -WALKER WHEELS/F1 MIS
[2017-08-20] MEDS ORDERED: SODIUM CHLORIDE 0.9% FLUSH 10 ML FLUSH IVF PRN (08:45)
--- NOTE | 2017-08-20 08:55 | RADRPT ---
EXAM DATE/TIME: 08/20/2017 08:48 [facility] COMPARISON: CHEST SINGLE AP, August 31, 2015, 22:22. INDICATIONS : Possible CVA. MEDICAL HISTORY : Stroke. SURGICAL HISTORY : Pain stimulator. ENCOUNTER: Initial ACUITY: 1 day PAIN SCORE: 0/10 LOCATION: Bilateral chest FINDINGS: The cardiac silhouette is enlarged in transverse diameter. The lungs are free of acute parenchymal op acity. No effusions are identified. Osseous structures are intact. There is prominence of the aortic knob is with calcification characteristic of atherosclerotic vascular disease. Epidural stimulator is present. CONCLUSION: Cardiomegaly. No acute cardiopulmonary disease. Mehran Woodson MD on August 20, 2017 at 8:54 Board Certified Radiologist. This report was verified electronically.
[2017-08-20 08:58] LABS: AUTOMATED NEUTROPHIL # 2.4 TH/MM3 (1.8-7.7); BASOPHIL % 0.8 % (0.0-2.0); EOSINOPHIL # 0.1 TH/MM3 (0-0.4); EOSINOPHIL % 3.7 % (0.0-4.0); HEMATOCRIT 40.3 % (35.0-46.0); LYMPH % 16.9 % (9.0-44.0); LYMPHOCYTE # 0.6 TH/MM3 (1.0-4.8); MEAN CELL VOLUME 98.8 FL (80.0-100.0); MEAN CORPUSCULAR HEMOGLOBIN 34.6 PG (27.0-34.0); MONO % 6.5 % (0.0-8.0); NEUT % 72.1 % (16.0-70.0); PLATELET COUNT 68 TH/MM3 (150-450); RED BLOOD COUNT 4.08 MIL/MM3 (4.00-5.30); RED CELL DISTRIBUTION WIDTH 14.5 % (11.6-17.2); WHITE BLOOD COUNT 3.3 TH/MM3 (4.0-11.0)
[2017-08-20 09:05] LABS: HEMO FLAGS AUTO DIFF
[2017-08-20 09:09] LABS: APTT (PATIENT) 32.9 SEC (24.3-30.1); INTERNATIONAL NORMALIZED RATIO 1.2 RATIO; PROTHROMBIN TIME - PATIENT 13.8 SEC (9.8-11.6)
--- NOTE | 2017-08-20 09:22 | RADRPT ---
EXAM DATE/TIME: 08/20/2017 09:09 [facility] COMPARISON: CT BRAIN W/O CONTRAST, March 21, 2016, 15:11. INDICATIONS : Slurred speech for 2 days . RADIATION DOSE: 35.13 CTDIvol (mGy) MEDICAL HISTORY : Stroke. Deep venous thrombosis. SURGICAL HISTORY : Tonsillectomy. Fusion, cervical. ENCOUNTER: Initial ACUITY: 2 days PAIN SCALE: 0/10 LOCATION: Bilateral cranial TECHNIQUE: Multiple contiguous axial images were obtained of the head. Using automated exposure control and adj ustment of the mA and/or kV according to patient size, radiation dose was kept as low as reasonably a chievable to obtain optimal diagnostic quality images. DICOM format image data is available electro nically for review and comparison. FINDINGS: There is a stable focus of encephalomalacia in the high convexity left parietal-occipital region. The re is no evidence of intracranial mass or hemorrhage. There is nothing to suggest acute infarction. E xtracranial structures are benign and intact. CONCLUSION: Stable brain appearance. No acute intracranial findings Giuseppe Young MD on August 20, 2017 at 9:19 Board Certified Radiologist. This report was verified electronically.
[2017-08-20 09:27] LABS: ANION GAP 9 MEQ/L (5-15); AST (GOT) 44 U/L (15-37); BICARBONATE 25.3 MEQ/L (21.0-32.0); BLOOD UREA NITROGEN 10 MG/DL (7-18); CHLORIDE 105 MEQ/L (98-107); GLOMERULAR FILTRATION RATE 49 ML/MIN (>89); POTASSIUM 4.1 MEQ/L (3.5-5.1); SODIUM (NA) 139 MEQ/L (136-145)
[2017-08-20 09:28] LABS: ALT (GPT) 25 U/L (10-53)
[2017-08-20 09:30] LABS: ALKALINE PHOSPHATASE 145 U/L (45-117); TOTAL BILIRUBIN ADULT 4.1 MG/DL (0.2-1.0)
[2017-08-20 09:50] LABS: OVALOCYTES 1+ (NORMAL); PLATELET ESTIMATE SMEAR LOW (NORMAL)
[2017-08-20 09:51] LABS: PLATELET MORPHOLOGY NORMAL (NORMAL); SCAN/DIFF AUTO DIFF CONFIRMED
--- NOTE | 2017-08-20 09:53 | PD ---
HPI Chief Complaint: Neuro Symptoms/ Deficits Time Seen by Provider: 08:36 Travel History International Travel<30 days: No Contact w/Intl Traveler<30days: No Traveled to known affect area: No History of Present Illness HPI This is a 72-year-old female with history of previous CVA, previous DVTs, presents here with several day history of confusion and altered sensorium. states that since Friday him a he's noticed that she has been progressively more confused than normal. He reports that she's complaining of increased sleep. He reports that she has difficulty finding words. There is no reported focal deficits. She is able to answer questions however does report that she doesn't feel as though she can remember things well and appears weak all over. There is no reported headache. There is no reported dysuria, urgency, frequency. There are no other complaints time my examination. There is no new medications reported. PFSH Past Medical History Hx Anticoagulant Therapy: No Cancer: No Cardiovascular Problems: No Chemotherapy: No Cerebrovascular Accident: Yes Diabetes: No Endocrine: Yes Gastrointestinal Disorders: Yes (GERD, IRRITABLE BOWEL) Genitourinary: No Hepatitis: No Hiatal Hernia: No Hypertension: No Immune Disorder: No Musculoskeletal: Yes (ARTHRITIS, bilat knee pain, BACK PAIN) Neurologic: Yes (STROKE) Psychiatric: Yes (ANXIETY/DEPRESSION) Reproductive: No Respiratory: No Thyroid Disease: Yes Menopausal: Yes Past Surgical History Abdominal Surgery: Yes (CHOLECYSTECTOMY) AICD: No Body Medical Devices: IVC FILTER, STIMULATOR IN BACK, POSSIBLE SCREW IN BACK Cardiac Surgery: Yes (IVC FILTER) Cholecystectomy: Yes Ear Surgery: No Endocrine Surgery: No Eye Surgery: No Genitourinary Surgery: No Gynecologic Surgery: Yes (C SECTION, COMPLETE HYSTERECTOMY) Hysterectomy: Yes Joint Replacement: No Neurologic Surgery: Yes (ANT. CERVICAL FUSION ) Oral Surgery: Yes (TONSILLECTOMY) Pacemaker: No Thoracic Surgery: No Other Surgery: Yes Social History Alcohol Use: Yes (OCCASSIONALLY) Tobacco Use: No Substance Use: No Allergies-Medications (Allergen,Severity, Reaction): Coded Allergies: adhesive (Unverified Allergy, Severe, PULLS SKIN OFF, 08/20/17) enoxaparin (Unverified Allergy, Severe, Itching AND HIVES, 08/20/17) acetaminophen (Unverified Adverse Reaction, Severe, PT STATES SHE SLEEPS ALL THE TIME ,"KNOCKS HER OUT", 08/20/17) alprazolam (Unverified Adverse Reaction, Severe, HALLUCINATIONS,CONFUSION , 08/20/17) lactose (Unverified Adverse Reaction, Severe, DIARRHEA, 08/20/17) oxycodone (Unverified Adverse Reaction, Severe, PT STATES SHE SLEEPS ALL THE TIME ,"KNOCKS HER OUT", 08/20/17) Reported Meds & Prescriptions Reported Meds & Active Scripts Active Reported Ferrous Sulfate 325 Mg (65 Mg Iron) Tablet 50 Mg PO DAILY Vitamin B12 (Cyanocobalamin) 500 Mcg Tab 1,000 Mcg PO DAILY Vitamin K (Phytonadione) 100 Mcg Tab Unknown Dose PO DAILY Lorazepam 0.5 Mg Tab 0.5 Mg PO HS PRN Zofran (Ondansetron HCl) 4 Mg Tab 4 Mg PO Q8HR PRN Loperamide (Loperamide HCl) 2 Mg Cap 2 Mg PO DIRECTED PRN One capsule after each loose stool. Not to exceed 8 capsules per day. Zantac (Ranitidine HCl) 150 Mg Tab 150 Mg PO DAILY PRN Biotin 10 Mg Tab 10 Mg PO DAILY Citalopram (Citalopram Hydrobromide) 40 Mg Tab 40 Mg PO DAILY Levothyroxine (Levothyroxine Sodium) 50 Mcg Tab 50 Mcg PO DAILY Triamterene-Hydrochlorothiazide 37.5-25 Mg Cap 1 Cap PO DAILY Review of Systems Except as stated in HPI: all other systems reviewed are Neg General / Constitutional: No: Fever, Chills Eyes: No: Diploplia, Blurred Vision HENT: No: Headaches, Neck Pain Cardiovascular: No: Chest Pain or Discomfort, Palpitations Respiratory: No: Cough, Shortness of Breath Gastrointestinal: Positive: Vomiting, No: Nausea, Diarrhea, Abdominal Pain (5 days ago, none now) Genitourinary: No: Frequency, Dysuria Musculoskeletal: Positive: Weakness, No: Pain (generalized) Neurologic: Positive: Weakness (generalized), Change in Mentation, No: Syncope , Focal Abnormalities, Headache, Incontinence, Sensory Disturbance Psychiatric: Positive: Depression (history of), No: Anxiety Physical Exam Narrative GENERAL: Well-developed well-nourished female in no acute respiratory distress. SKIN: Focused skin assessment warm/dry. HEAD: Atraumatic. Normocephalic. EYES: No scleral icterus. No injection or drainage. ENT: No nasal bleeding or discharge. Mucous membranes pink and moist. NECK: Trachea midline. No JVD. Supple. CARDIOVASCULAR: Regular rate and rhythm. No murmur appreciated. RESPIRATORY: No accessory muscle use. Clear to auscultation. Breath sounds equal bilaterally. GASTROINTESTINAL: Abdomen soft, non-tender, nondistended. No pulsatile masses. MUSCULOSKELETAL: No obvious deformities. No clubbing. No cyanosis. No edema. NEUROLOGICAL: Awake and slightly confused. No obvious cranial nerve deficits. Motor grossly within normal limits. Normal speech. Data Data Last Documented VS Vital Signs Date Time Temp Pulse Resp B/P (MAP) Pulse Ox O2 Delivery O2 Flow Rate FiO2 08/20/17 11:51 92 17 125/57 (79) 94 Room Air 08/20/17 08:26 98.9 Orders Orders Electrocardiogram (08/20/17 08:36) Prothrombin Time / Inr (Pt) (08/20/17 08:36) Act Partial Throm Time (Ptt) (08/20/17 08:36) Complete Blood Count With Diff (08/20/17 08:36) Comprehensive Metabolic Panel (08/20/17 08:36) Urinalysis - C+S If Indicated (08/20/17 08:36) Ct Brain W/O Iv Contrast(Rout) (08/20/17 08:36) Chest, Single Ap (08/20/17 08:36) Ecg Monitoring (08/20/17 08:36) Iv Access Insert/Monitor (08/20/17 08:36) Oximetry (08/20/17 08:36) Sodium Chloride 0.9% Flush (Ns Flush) (08/20/17 08:45) Ammonia (08/20/17 09:44) Thyroid Stimulating Hormone (08/20/17 09:44) Admit To Inpatient (08/20/17 ) Vital Signs (Adult) Q4H (08/20/17 12:34) Neuro Checks Q4H (08/20/17 12:34) Activity Oob Ad Zulema (08/20/17 12:34) Elevator Erector / Telemetry .CONTINUOUS (08/20/17 12:34) Intake + Output LATOYA.QSHIFT (08/20/17 12:34) Notify Dr: Other (08/20/17 12:34) Diet Npo (08/20/17 Lunch) Sodium Chlor 0.9% 1000 Ml Inj (Ns 1000 M (08/20/17 12:34) Sodium Chloride 0.9% Flush (Ns Flush) (08/20/17 12:45) Sodium Chloride 0.9% Flush (Ns Flush) (08/20/17 21:00) Acetaminophen (Tylenol) (08/20/17 12:45) Ondansetron Inj (Zofran Inj) (08/20/17 13:00) Comprehensive Metabolic Panel (08/21/17 06:00) Complete Blood Count With Diff (08/21/17 06:00) Creatine Kinase (Cpk) (08/20/17 12:34) Creatine Kinase (Cpk) (08/20/17 18:34) Troponin I (08/20/17 12:34) Troponin I (08/20/17 18:34) Resp Oxygen Vinny C Titrat 1-4 L (08/20/17 ) Pt Request For Service (08/20/17 12:34) Ot Request For Service (08/20/17 12:34) Speech Therapy Consult-Eval/Tx (08/20/17 12:34) Case Management Consult (08/20/17 12:34) Scd Bilateral/Knee High LATOYA.BID (08/20/17 12:34) Naloxone Inj (Narcan Inj) (08/20/17 12:45) Docusate Sodium-Senna (Sarah Beth-Colace) (08/20/17 21:00) Magnesium Hydroxide Liq (Milk Of Magnesi (08/20/17 21:00) Sennosides (Senokot) (08/20/17 21:00) Bisacodyl Supp (Dulcolax Supp) (08/20/17 12:45) Lactulose Liq (Lactulose Liq) (08/20/17 12:45) Inpatient Certification (08/20/17 ) Admit Order (Ed Use Only) (08/20/17 12:44) Labs Laboratory Tests Test 08/20/17 08:45 08/20/17 09:50 08/20/17 09:52 White Blood Count 3.3 TH/MM3 Red Blood Count 4.08 MIL/MM3 Hemoglobin 14.1 GM/DL Hematocrit 40.3 % Mean Corpuscular Volume 98.8 FL Mean Corpuscular Hemoglobin 34.6 PG Mean Corpuscular Hemoglobin Concent 35.0 % Red Cell Distribution Width 14.5 % Platelet Count 68 TH/MM3 Mean Platelet Volume 7.7 FL Neutrophils (%) (Auto) 72.1 % Lymphocytes (%) (Auto) 16.9 % Monocytes (%) (Auto) 6.5 % Eosinophils (%) (Auto) 3.7 % Basophils (%) (Auto) 0.8 % Neutrophils # (Auto) 2.4 TH/MM3 Lymphocytes # (Auto) 0.6 TH/MM3 Monocytes # (Auto) 0.2 TH/MM3 Eosinophils # (Auto) 0.1 TH/MM3 Basophils # (Auto) 0.0 TH/MM3 CBC Comment AUTO DIFF Differential Comment AUTO DIFF CONFIRMED Platelet Estimate LOW Platelet Morphology Comment NORMAL Ovalocytes 1+ Prothrombin Time 13.8 SEC Prothromb Time International Ratio 1.2 RATIO Activated Partial Thromboplast Time 32.9 SEC Blood Urea Nitrogen 10 MG/DL Creatinine 1.09 MG/DL Random Glucose 95 MG/DL Total Protein 7.5 GM/DL Albumin 4.4 GM/DL Calcium Level 9.7 MG/DL Alkaline Phosphatase 145 U/L Aspartate Amino Transf (AST/SGOT) 44 U/L Alanine Aminotransferase (ALT/SGPT) 25 U/L Total Bilirubin 4.1 MG/DL Sodium Level 139 MEQ/L Potassium Level 4.1 MEQ/L Chloride Level 105 MEQ/L Carbon Dioxide Level 25.3 MEQ/L Anion Gap 9 MEQ/L Estimat Glomerular Filtration Rate 49 ML/MIN Ammonia 93 MCMOL/L Thyroid Stimulating Hormone 3rd Gen 3.260 uIU/ML Urine Color YELLOW Urine Turbidity HAZY Urine pH 6.5 Urine Specific Treynor 1.018 Urine Protein NEG mg/dL Urine Glucose (UA) NEG mg/dL Urine Ketones NEG mg/dL Urine Occult Blood NEG Urine Nitrite NEG Urine Bilirubin NEG Urine Urobilinogen 4.0 MG/DL Urine Leukocyte Esterase NEG Urine RBC LESS THAN 1 /hpf Urine WBC 1 /hpf Urine Squamous Epithelial Cells 5 /hpf Urine Hyaline Casts 1 /lpf Urine Mucus FEW /lpf Microscopic Urinalysis Comment CATH-CULT NOT IND MDM Medical Decision Making Medical Screen Exam Complete: Yes Emergency Medical Condition: Yes Differential Diagnosis CVA versus TIA versus metabolic arrangement versus medication reaction Narrative Course 72-year-old female presents with altered mental status progressive over the last several days. The patient also has a history of previous DVTs and a previous history of strokes. Patient has not received felt her in place. The patient is mildly confused. There are no focal deficits that I appreciate on exam. The patient was told that she had liver disease and her liver enzymes were slightly elevated. An ammonia level was ordered because of the liver disease which shows a level of 93. This is likely cause of her confusion and altered mental status. She will be admitted to the hospital. A call was made out to Dr. Sibley with the [facility] hospitalist. Further workup and evaluation will be per Dr. Sibley. Diagnosis Primary Impression: Hyperammonemia Additional Impressions: Elevated liver enzymes History of bilateral breast cancer Admitting Information Admitting Physician Requests: Admit Cameron Archuleta MD Aug 20, 2017 09:53
[2017-08-20] MEDS ORDERED: FERR325T8 PO (10:00)
[2017-08-20 10:38] LABS: BLOOD, URINE NEG (NEG); COMMENT (UR) CATH-CULT NOT IND; CULTURE IF INDICATED CATH CULTURE NOT IND; GLUCOSE,URINE NEG (NEG); HYALINE CAST, URINE 1 /lpf (RARE); KETONE, URINE NEG (NEG); MUCUS URINE FEW /lpf (OCC); NITRITE,URINE NEG (NEG); PH, URINE 6.5 (5.0-8.5); SQUAMOUS EPITHELIAL CELL URINE 5 /hpf (0-5); URINE COLOR YELLOW (YELLW/STRAW)
--- NOTE | 2017-08-20 12:40 | HHI.HP ---
[facility] Jakc Christian MD Admission Diagnosis Diagnoses: Chief Complaint: Altered Mental Status Travel History International Travel<30 Days: No Contact w/Intl Traveler <30 Da: No Traveled to Known Affected Are: No History of Present Illness ER Notes: This is a 72-year-old female with history of previous CVA, previous DVTs, presents here with several day history of confusion and altered sensorium. states that since Friday him a he's noticed that she has been progressively more confused than normal. He reports that she's complaining of increased sleep. He reports that she has difficulty finding words. There is no reported focal deficits. She is able to answer questions however does report that she doesn't feel as though she can remember things well and appears weak all over. There is no reported headache. There is no reported dysuria, urgency, frequency. There are no other complaints time my examination. There is no new medications reported. This is a pleasant 72 y/o Female seen in Emergency room after I was called to admit this patient by ER specialist, seen in the presence of her Mr. 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 has also a pain stimulator to be removed is not working, not recommended anticoagulation today found with Hyperammonemia in ER probable related to her Primary condition. She was seen on Friday08/18/17 by her Primary Care Physician Doctor Jack Christian was told to come to ER if continue worsening. Review of Systems ROS Limitations: Altered Mental Status Constitutional: DENIES: Fever, Chills, Change in appetite Endocrine: DENIES: Heat/cold intolerance Eyes: DENIES: Blurred vision, Eye pain Except as stated in HPI: all other systems reviewed are Neg Past Family Social History Past Medical History CVA GERD Irritable Bowel syndrome OA Anxiety disorder/Depression Hypothyroidism blood clots Hemorrhoids Coagulopathy secondary to Liver disease Thrombocytopenia chronic diarrhea Status post IVC filter Past Surgical History Cholecystectomy IVC filter C Section URVASHI Anterior cervical fusion Tonsillectomy Lumbar spine surgery Left Shoulder surgery Left total knee arthroplasty Reported Medications Reported Meds & Active Scripts Active Reported Ferrous Sulfate 325 Mg (65 Mg Iron) Tablet 50 Mg PO DAILY Vitamin B12 (Cyanocobalamin) 500 Mcg Tab 1,000 Mcg PO DAILY Vitamin K (Phytonadione) 100 Mcg Tab Unknown Dose PO DAILY Lorazepam 0.5 Mg Tab 0.5 Mg PO HS PRN Zofran (Ondansetron HCl) 4 Mg Tab 4 Mg PO Q8HR PRN Loperamide (Loperamide HCl) 2 Mg Cap 2 Mg PO DIRECTED PRN One capsule after each loose stool. Not to exceed 8 capsules per day. Zantac (Ranitidine HCl) 150 Mg Tab 150 Mg PO DAILY PRN Biotin 10 Mg Tab 10 Mg PO DAILY Citalopram (Citalopram Hydrobromide) 40 Mg Tab 40 Mg PO DAILY Levothyroxine (Levothyroxine Sodium) 50 Mcg Tab 50 Mcg PO DAILY Triamterene-Hydrochlorothiazide 37.5-25 Mg Cap 1 Cap PO DAILY Allergies: Coded Allergies: adhesive (Unverified Allergy, Severe, PULLS SKIN OFF, 08/20/17) enoxaparin (Unverified Allergy, Severe, Itching AND HIVES, 08/20/17) acetaminophen (Unverified Adverse Reaction, Severe, PT STATES SHE SLEEPS ALL THE TIME ,"KNOCKS HER OUT", 08/20/17) alprazolam (Unverified Adverse Reaction, Severe, HALLUCINATIONS,CONFUSION , 08/20/17) lactose (Unverified Adverse Reaction, Severe, DIARRHEA, 08/20/17) oxycodone (Unverified Adverse Reaction, Severe, PT STATES SHE SLEEPS ALL THE TIME ,"KNOCKS HER OUT", 08/20/17) Active Ordered Medications Current Medications Medications (Trade) Dose Ordered Sig/Aristeo Route Start Time Stop Time Status Last Admin Sodium Chloride 1,000 ml @ 100 mls/hr Q10H IV 08/20/17 12:34 08/20/17 13:19 (NS Flush) 2 ml UNSCH PRN IV FLUSH 08/20/17 12:45 (NS Flush) 2 ml BID IV FLUSH 08/20/17 21:00 (Tylenol) 650 mg Q4H PRN PO 08/20/17 12:45 (Zofran Inj) 4 mg Q6H PRN IVP 08/20/17 13:00 (Narcan Inj) 0.4 mg UNSCH PRN IV PUSH 08/20/17 12:45 (Sarah Beth-Colace) 1 tab BID PO 08/20/17 21:00 (Milk Of Magnesia Liq) 30 ml Q12HR PRN PO 08/20/17 21:00 (Senokot) 17.2 mg Q12HR PRN PO 08/20/17 21:00 (Dulcolax Supp) 10 mg DAILY PRN RECTAL 08/20/17 12:45 (Lactulose Liq) 30 ml DAILY PRN PO 08/20/17 12:45 (Lactulose Liq) 30 ml TID PO 08/20/17 18:00 (Xifaxan) 550 mg BID PO 08/20/17 14:00 Family History Father with Lung cancer Mother with DM II Brother with Lung cancer Brother with DM II Social History She used to drink alcohol heavy until 15 years ago as per her never smoked cigarettes Now use Alcohol occasional denies other toxic habits. Physical Exam Vital Signs Vital Signs Date Time Temp Pulse Resp B/P (MAP) Pulse Ox O2 Delivery O2 Flow Rate FiO2 08/20/17 11:51 92 17 125/57 (79) 94 Room Air 08/20/17 11:00 88 18 138/60 (86) 97 Room Air 08/20/17 08:40 92 18 151/66 (94) 100 Room Air 08/20/17 08:26 98.9 93 18 149/90 (109) 98 Room Air Physical Exam GENERAL: Well-developed well-nourished female in no acute respiratory distress. SKIN: Ecchymosis on both arms. HEAD: Atraumatic. Normocephalic. EYES: No scleral icterus. No injection or drainage. ENT: No nasal bleeding or discharge. Mucous membranes pink and moist. NECK: Trachea midline. No JVD. Supple. CARDIOVASCULAR: Regular rate and rhythm. No murmur appreciated. RESPIRATORY: No accessory muscle use. Clear to auscultation. Breath sounds equal bilaterally. GASTROINTESTINAL: Abdomen soft, non-tender, nondistended. No pulsatile masses. MUSCULOSKELETAL: No obvious deformities. Lymphedema on left leg. NEUROLOGICAL: Awake and slightly confused. No obvious cranial nerve deficits. Motor grossly within normal limits. Normal speech. Laboratory Laboratory Tests Test 08/20/17 08:45 08/20/17 09:50 08/20/17 09:52 White Blood Count 3.3 Red Blood Count 4.08 Hemoglobin 14.1 Hematocrit 40.3 Mean Corpuscular Volume 98.8 Mean Corpuscular Hemoglobin 34.6 Mean Corpuscular Hemoglobin Concent 35.0 Red Cell Distribution Width 14.5 Platelet Count 68 Mean Platelet Volume 7.7 Neutrophils (%) (Auto) 72.1 Lymphocytes (%) (Auto) 16.9 Monocytes (%) (Auto) 6.5 Eosinophils (%) (Auto) 3.7 Basophils (%) (Auto) 0.8 Neutrophils # (Auto) 2.4 Lymphocytes # (Auto) 0.6 Monocytes # (Auto) 0.2 Eosinophils # (Auto) 0.1 Basophils # (Auto) 0.0 CBC Comment AUTO DIFF Differential Comment AUTO DIFF CONFIRMED Platelet Estimate LOW Platelet Morphology Comment NORMAL Ovalocytes 1+ Prothrombin Time 13.8 Prothromb Time International Ratio 1.2 Activated Partial Thromboplast Time 32.9 Blood Urea Nitrogen 10 Creatinine 1.09 Random Glucose 95 Total Protein 7.5 Albumin 4.4 Calcium Level 9.7 Alkaline Phosphatase 145 Aspartate Amino Transf (AST/SGOT) 44 Alanine Aminotransferase (ALT/SGPT) 25 Total Bilirubin 4.1 Sodium Level 139 Potassium Level 4.1 Chloride Level 105 Carbon Dioxide Level 25.3 Anion Gap 9 Estimat Glomerular Filtration Rate 49 Ammonia 93 Thyroid Stimulating Hormone 3rd Gen 3.260 Urine Color YELLOW Urine Turbidity HAZY Urine pH 6.5 Urine Specific [place] 1.018 Urine Protein NEG Urine Glucose (UA) NEG Urine Ketones NEG Urine Occult Blood NEG Urine Nitrite NEG Urine Bilirubin NEG Urine Urobilinogen 4.0 Urine Leukocyte Esterase NEG Urine RBC LESS THAN 1 Urine WBC 1 Urine Squamous Epithelial Cells 5 Urine Hyaline Casts 1 Urine Mucus FEW Microscopic Urinalysis Comment CATH-CULT NOT IND Result Diagram: 08/20/1784408/20/17844 Imaging Last Impressions Head CT 08/20/17835 Signed Impressions: Service Date/Time: Sunday, August 20, 2017 09:09 - CONCLUSION: Stable brain appearance. No acute intracranial findings Giuseppe Young MD Chest X-Ray 08/20/17835 Signed Impressions: Service Date/Time: Sunday, August 20, 2017 08:48 - CONCLUSION: Cardiomegaly. No acute cardiopulmonary disease. MD Bhavna Maier VTE Risk Assessment Caprini VTE Risk Assessment: Mod/High Risk (score >= 2) Caprini Risk Assessment Model Point Value = 1 Point Value = 2 Point Value = 3 Point Value = 5 Age 41-60 Minor surgery BMI > 25 kg/m2 Swollen legs Varicose veins or History of unexplained or recurrent spontaneous Oral contraceptives or hormone replacement Sepsis (< 1 month) Serious lung disease, including pneumonia (< 1 month) Abnormal pulmonary function Acute myocardial infarction Congestive heart failure (< 1 month) History of inflammatory bowel disease Medical patient at bed rest Age 61-74 Arthroscopic surgery Major open surgery (> 45 min) Laparoscopic surgery (> 45 min) Malignancy Confined to bed (> 72 hours) Immobilizing plaster cast Central venous access Age >= 75 History of VTE Family history of VTE Factor V Leiden Prothrombin [id number] Lupus anticoagulant Anticardiolipin antibodies Elevated serum homocysteine Heparin-induced thrombocytopenia Other congenital or acquired thrombophilia Stroke (< 1 month) Elective arthroplasty Hip, pelvis, or leg fracture Acute spinal cord injury (< 1 month) Prophylaxis Regimen Total Risk Factor Score Risk Level Prophylaxis Regimen 0-1 Low Early ambulation 2 Moderate Order ONE of the following: *Sequential Compression Device (SCD) *Heparin 5000 units SQ BID 3-4 Higher Order ONE of the following medications: *Heparin 5000 units SQ TID *Enoxaparin/Lovenox 40 mg SQ daily (WT < 150 kg, CrCl > 30 mL/min) *Enoxaparin/Lovenox 30 mg SQ daily (WT < 150 kg, CrCl > 10-29 mL/min) *Enoxaparin/Lovenox 30 mg SQ BID (WT < 150 kg, CrCl > 30 mL/min) AND/OR *Sequential Compression Device (SCD) 5 or more Highest Order ONE of the following medications: *Heparin 5000 units SQ TID (Preferred with Epidurals) *Enoxaparin/Lovenox 40 mg SQ daily (WT < 150 kg, CrCl > 30 mL/min) *Enoxaparin/Lovenox 30 mg SQ daily (WT < 150 kg, CrCl > 10-29 mL/min) *Enoxaparin/Lovenox 30 mg SQ BID (WT < 150 kg, CrCl > 30 mL/min) AND *Sequential Compression Device (SCD) Assessment and Plan Assessment and Plan 1. Encephalopathy mostly secondary to Chronic Liver disease, with Hyperammonemia started on Lactulose, follow clinically does not need daily measures of ammonia levels, consult GI specialist, will need to titrate to get at least three BMs daily. 2. CVA by history at this time no focal deficits do not believe in any TIA at this time but will follow 3. CVA by history 4. GERD continue Ranitidine 5. Irritable Bowel Syndrome/Hemorrhoids follow GI specialist consult placed. 6. Anxiety disorder and Depression continue Home medicines 7. History of blood clots, was on Warfarin, then Baby Aspirin now off this medicines due to Coagulopathy secondary to Liver disease, Thrombocytopenia now [id number], labeling specialist following Doctor Ruperto Poole has an IVC filter. 8. OA by history with status post Left knee arthroplasty, C5-C6 and C6-C7 Anterior Cervical Fusion Left Shoulder surgery, Lumbar spine surgery 9. Hypothyroidism on Levothyroxine [employer] consult PT/OT and Speech therapy consult. DVT prophylaxis with SCDs. Code Status full Code. Discussed Condition With Cameron Archuleta MD Patient and her Mr. Kelvin Clinton in the room. Physician Certification 2 Midnight Certification Type: Admission for Inpatient Services Order for Inpatient Services The services are ordered in accordance with Medicare regulations or non- Medicare payer requirements, as applicable. In the case of services not specified as inpatient-only, they are appropriately provided as inpatient services in accordance with the 2-midnight benchmark. Estimated LOS (days): 3 days is the estimated time the patient will need to remain in the hospital, assuming treatment plan goals are met and no additional complications. Post-Hospital Plan: Home Remi Love MD Aug 20, 2017 12:40
[2017-08-20] MEDS ORDERED: NALOXONE HCL 0.4 MG/ML AMP IV PUSH PRN (12:45)
[2017-08-20] MEDS ORDERED: BISACODYL 10 MG SUPP RECTAL PRN (12:45)
[2017-08-20] MEDS ORDERED: LACTULOSE SYRUP 20 GM/30 ML CUP PO PRN (12:45)
[2017-08-20] MEDS ORDERED: SODIUM CHLORIDE 0.9% FLUSH 10 ML FLUSH IV FLUSH PRN (12:45)
[2017-08-20] MEDS ORDERED: ACETAMINOPHEN 325 MG TAB PO PRN (12:45)
[2017-08-20] MEDS ORDERED: ONDANSETRON HCL 4 MG/2 ML VIAL IVP PRN (13:00)
[2017-08-20] MEDS: SODIUM CHLOR 0.9% 1000 ML INJ 1,000 ML IV SCH ×2 (13:19→22:23)
[2017-08-20] MEDS ORDERED: LOPERAMIDE HCL 2 MG CAP PO PRN (14:00)
[2017-08-20] MEDS: RIFAXIMIN 550 MG TAB PO SCH ×2 (14:00→22:22)
--- NOTE | 2017-08-20 14:12 | EKG ---
Date Performed: 08/20/2017 Time Performed: 09:31:26 PTAGE: 72 years EKG: Sinus rhythm NORMAL RHYTHM ECG PREVIOUS TRACING : 12/17/2016 10.17 DOCTOR: Jason Livingston Interpretating Date/Time 08/20/2017 14:10:52
[2017-08-20] MEDS ORDERED: FAMOTIDINE 20 MG TAB PO PRN (16:00)
--- NOTE | 2017-08-20 16:10 | PD.CONS ---
HPI History of Present Illness This is a 72 year old female who was brought to the emergency room for evaluation of altered mental status. She does have a history of CVA and some confusion, but her reported that she has been more lethargic and confused than usual since Friday. She was noted to have an ammonia level of 93 and she was started on Lactulose and Xifaxan. She is now alert and oriented to person, place, and time. She tells me that she was brought to the ER because she was very confused earlier today, but she is much better. She tells me that she is followed by hematology and that they have been trying to get her to see a handbag parts cutter for possible liver disease, but she has not. According to Dr. Poole's 07/27/17 note, she has coagulopathy secondary to intrinsic liver disease and that she was referred to GI, but has never followed up. There is mention of a colonoscopy in 2014 and therefore I checked our records, but she has never been seen in our office. The patient tells me that she used to drink quite heavily about 15-20 years ago, but now only drinks on rare occasions. She was told that she may have liver disease by her crisis intervention counselor, but denies ever being told that she has liver cirrhosis. She has GERD and has intermittent nausea and states she does have a pill to take as needed for that. She is not currently having any issues and denies any abdominal pain. She states she has had an EGD, but that it was quite some time ago. She has dark stools, but states this only started after she started taking iron supplements. She reports that her sister has liver disease and never drank alcohol. (Stephanie Guzman) PFSH Past Medical History Anxiety Arthritis DVTs Depression GERD Hemorrhoids HTN Hyperthyroidism PNA RA Coaglopathy Suspected liver disease Past Surgical History Cholecystectomy IVC filter C Section Anterior cervical fusion Tonsillectomy Lumbar spine surgery Left Shoulder surgery Left total knee arthroplasty Colonoscopy Hysterectomy Appendectomy (Stephanie Guzman) Coded Allergies: adhesive (Unverified Allergy, Severe, PULLS SKIN OFF, 08/20/17) enoxaparin (Unverified Allergy, Severe, Itching AND HIVES, 08/20/17) acetaminophen (Unverified Adverse Reaction, Severe, PT STATES SHE SLEEPS ALL THE TIME ,"KNOCKS HER OUT", 08/20/17) alprazolam (Unverified Adverse Reaction, Severe, HALLUCINATIONS,CONFUSION , 08/20/17) lactose (Unverified Adverse Reaction, Severe, DIARRHEA, 08/20/17) oxycodone (Unverified Adverse Reaction, Severe, PT STATES SHE SLEEPS ALL THE TIME ,"KNOCKS HER OUT", 08/20/17) Medications Allergies Coded Allergies Type Severity Reaction Last Updated Verified adhesive Allergy Severe PULLS SKIN OFF 08/20/17 No enoxaparin Allergy Severe Itching AND HIVES 08/20/17 No acetaminophen Adverse Reaction Severe PT STATES SHE SLEEPS ALL THE TIME , "KNOCKS HER OUT" 08/20/17 No alprazolam Adverse Reaction Severe HALLUCINATIONS,CONFUSION 08/20/17 No lactose Adverse Reaction Severe DIARRHEA 08/20/17 No oxycodone Adverse Reaction Severe PT STATES SHE SLEEPS ALL THE TIME ,"KNOCKS HER OUT" 08/20/17 No Active Scripts Medications Dose Route/Sig Max Daily Dose Days Date Category Dose Instructions Ferrous Sulfate 325 Mg (65 Mg Iron) Tablet 50 Mg PO DAILY 08/20/17 Reported Vitamin B12 (Cyanocobalamin) 500 Mcg Tab 1,000 Mcg PO DAILY 12/16/16 Reported Vitamin K (Phytonadione) 100 Mcg Tab Unknown Dose PO DAILY 12/16/16 Reported Lorazepam 0.5 Mg Tab 0.5 Mg PO HS PRN 10/03/16 Reported Zofran (Ondansetron HCl) 4 Mg Tab 4 Mg PO Q8HR PRN 10/03/16 Reported Loperamide (Loperamide HCl) 2 Mg Cap 2 Mg PO DIRECTED PRN 10/03/16 Reported One capsule after each loose stool. Not to exceed 8 capsules per day. Zantac (Ranitidine HCl) 150 Mg Tab 150 Mg PO DAILY PRN 10/03/16 Reported Biotin 10 Mg Tab 10 Mg PO DAILY 10/03/16 Reported Citalopram (Citalopram Hydrobromide) 40 Mg Tab 40 Mg PO DAILY 10/03/16 Reported Levothyroxine (Levothyroxine Sodium) 50 Mcg Tab 50 Mcg PO DAILY 10/03/16 Reported Triamterene-Hydrochlorothiazide 37.5-25 Mg Cap 1 Cap PO DAILY 10/03/16 Reported Family History Father with Lung cancer Mother with DM II Brother with Lung cancer Brother with DM II Sister had liver disease not related to ETOH Social History She used to drink alcohol heavy until 15-20 year ago, now occasional Never smoked cigarettes No illicit drug use. (ThomasStephanie Shayy KELLOGG) Review of Systems Constitutional: COMPLAINS OF: Fatigue, DENIES: Weight loss, Change in appetite Respiratory: DENIES: Cough Cardiovascular: DENIES: Chest pain Gastrointestinal: COMPLAINS OF: Nausea, Heartburn, DENIES: Abdominal pain, Black stools, Bloody stools, Constipation, Diarrhea, Vomiting, Swelling of Abdomen Musculoskeletal: COMPLAINS OF: Joint pain Integumentary: DENIES: Jaundice Hematologic/lymphatic: COMPLAINS OF: Bruising Neurologic: DENIES: Headache Psychiatric: COMPLAINS OF: Confusion (Stephanie Guzman) GI Exam Vitals I&O Vital Signs Date Time Temp Pulse Resp B/P (MAP) Pulse Ox O2 Delivery O2 Flow Rate FiO2 08/20/17 14:27 110/67 (81) 08/20/17 14:20 08/20/17 11:51 92 17 125/57 (79) 94 Room Air 08/20/17 11:00 88 18 138/60 (86) 97 Room Air 08/20/17 08:40 92 18 151/66 (94) 100 Room Air 08/20/17 08:26 98.9 93 18 149/90 (109) 98 Room Air Imaging Last Impressions Head CT 08/20/1736 Signed Impressions: Service Date/Time: Sunday, August 20, 2017 09:09 - CONCLUSION: Stable brain appearance. No acute intracranial findings Giuseppe Young MD Chest X-Ray 08/20/17835 Signed Impressions: Service Date/Time: Sunday, August 20, 2017 08:48 - CONCLUSION: Cardiomegaly. No acute cardiopulmonary disease. Mehran Woodson MD Laboratory Test 08/20/17 08:45 08/20/17 09:50 08/20/17 09:52 White Blood Count 3.3 TH/MM3 Red Blood Count 4.08 MIL/MM3 Hemoglobin 14.1 GM/DL Hematocrit 40.3 % Mean Corpuscular Volume 98.8 FL Mean Corpuscular Hemoglobin 34.6 PG Mean Corpuscular Hemoglobin Concent 35.0 % Red Cell Distribution Width 14.5 % Platelet Count 68 TH/MM3 Mean Platelet Volume 7.7 FL Neutrophils (%) (Auto) 72.1 % Lymphocytes (%) (Auto) 16.9 % Monocytes (%) (Auto) 6.5 % Eosinophils (%) (Auto) 3.7 % Basophils (%) (Auto) 0.8 % Neutrophils # (Auto) 2.4 TH/MM3 Lymphocytes # (Auto) 0.6 TH/MM3 Monocytes # (Auto) 0.2 TH/MM3 Eosinophils # (Auto) 0.1 TH/MM3 Basophils # (Auto) 0.0 TH/MM3 CBC Comment AUTO DIFF Differential Comment AUTO DIFF CONFIRMED Platelet Estimate LOW Platelet Morphology Comment NORMAL Ovalocytes 1+ Prothrombin Time 13.8 SEC Prothromb Time International Ratio 1.2 RATIO Activated Partial Thromboplast Time 32.9 SEC Blood Urea Nitrogen 10 MG/DL Creatinine 1.09 MG/DL Random Glucose 95 MG/DL Total Protein 7.5 GM/DL Albumin 4.4 GM/DL Calcium Level 9.7 MG/DL Alkaline Phosphatase 145 U/L Aspartate Amino Transf (AST/SGOT) 44 U/L Alanine Aminotransferase (ALT/SGPT) 25 U/L Total Bilirubin 4.1 MG/DL Sodium Level 139 MEQ/L Potassium Level 4.1 MEQ/L Chloride Level 105 MEQ/L Carbon Dioxide Level 25.3 MEQ/L Anion Gap 9 MEQ/L Estimat Glomerular Filtration Rate 49 ML/MIN Ammonia 93 MCMOL/L Thyroid Stimulating Hormone 3rd Gen 3.260 uIU/ML Urine Color YELLOW Urine Turbidity HAZY Urine pH 6.5 Urine Specific [place] 1.018 Urine Protein NEG mg/dL Urine Glucose (UA) NEG mg/dL Urine Ketones NEG mg/dL Urine Occult Blood NEG Urine Nitrite NEG Urine Bilirubin NEG Urine Urobilinogen 4.0 MG/DL Urine Leukocyte Esterase NEG Urine RBC LESS THAN 1 /hpf Urine WBC 1 /hpf Urine Squamous Epithelial Cells 5 /hpf Urine Hyaline Casts 1 /lpf Urine Mucus FEW /lpf Microscopic Urinalysis Comment CATH-CULT NOT IND Physical Examination HEENT: Normocephalic; atraumatic; no jaundice. CHEST: CTA CARDIAC: RRR ABDOMEN: Soft, nondistended, nontender; bowel sounds are present in all four quadrants. EXTREMITIES: Mild ble edema. SKIN: Normal; no rash; no jaundice. 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 (Stephanie Guzman) Assessment and Plan Plan ASSESSMENT: - AMS, Elevated Ammonia in patient with suspected liver disease. She was started on Lactulose/Xifaxan. She has not actually received these yet, but is now alert and oriented x 3. Cont. lactulose/xifaxan. Will order liver workup. - Elevated LFTs, Labs consistent with cirrhosis. Pt has hx of ETOH abuse, drank heavily but cut back to only drinking on rare occasions 15-20 years ago. She has been referred to GI for suspected liver disease, but she has not followed up. T. Bili 4.1, AST 44, ALT 25, Alk Phosph 145. Plt 68,000. PT 13.8 , INR 1.2, APTT 32.9. Her labs are consistent with liver cirrhosis. Will get RUQ us and order liver workup. MELD 15 - Hepatic encephalopathy. Lactulose, Xifaxan. - Coagulopathy, Thrombocytopenia. Plt 68,000. PT 13.8, INR 1.2, APTT 32.9. She has been seen by hematology and he thought that this is most likely related to underlying liver disease, although there is a chance that it could be ITP. He had referred her to GI and wanted a liver biopsy as her hematology workup- ldh and bone marrow biopsy were unremarkable. - GERD, Nausea. States she has gerd and intermittent nausea, but is not currently having. She would benefit from EGD at some point for evaluation of GERD and to see if she has varices. Timing to be determined. - JIMMY, Hx CVA, Anxiety/Depression per attending. PLAN: - 2 gram low salt diet - RUQ US - AFP level - Hepatitis profile - MARIELA, ASMA, AMA - Ceruloplasmin, Alpha 1 Antitrypsin - Ferritin, Iron Saturation - Monitor CBC, PT/INR, CMP, Ammonia - Cont. Lactulose - Cont. Xifaxan - Cont. Pepcid - Supportive care - Further recommendations to follow based on results of above - Pt seen and examined by Dr. Villeda and myself and this note is written on her behalf (Stephanie Guzman) Physician Comments seen, examined agree with above (Kay Villeda MD) Stephanie Guzman Aug 20, 2017 16:10 Kay Villeda MD Aug 20, 2017 18:51
[2017-08-20] MEDS: LACTULOSE SYRUP 20 GM/30 ML CUP PO SCH (17:20)
--- NOTE | 2017-08-20 19:43 | RADRPT ---
EXAM DATE/TIME: 08/20/2017 18:45 [place] COMPARISON: No previous studies available for comparison. INDICATIONS : Increased lab values. MEDICAL HISTORY : Stroke. Gastroesophageal reflux disease. Thyroid disease. Glasses. Hearing problems. Dentures. Naus ea. Irritable bowel syndrome. Join pain. Deep vein thrombosis. SURGICAL HISTORY : Tonsillectomy. IVC Filter placement. section. Cervical fusion. Cholecystectomy. Appendectomy . Hysterectomy. Left knee replacement. ENCOUNTER: Initial ACUITY: 1 day PAIN SCORE: 0/10 LOCATION: Bilateral upper quadrant MEASUREMENTS: LIVER: 11.2 cm length COMMON DUCT: 10 mm RIGHT KIDNEY: 10.4 x 5.8 x 5.3 cm SPLEEN: 13.6 cm length FINDINGS: LIVER: The liver echotexture appears coarsened. Focal hepatic lesions are not seen. COMMON DUCT: Common bile duct is dilated. This may reflect a reservoir phenomenon bone cholecystectomy. The distal common bile duct and pancreas are not seen. GALLBLADDER: The patient is status post cholecystectomy. PANCREAS: The pancreas is obscured by overlying bowel gas. RIGHT KIDNEY: There is a 1.2 x 0.8 x 0.9 cm echogenic area seen in the mid renal cortex. No hydronephrosis is seen. SPLEEN: The spleen is enlarged measuring 13.6 cm in length. No focal splenic lesion is seen. CONCLUSION: 1. Coarsened hepatic echotexture which suggests diffuse underlying processes. 2. Dilatation the common bile duct. This can be seen as reservoir phenomenon following cholecystectom y. This can be correlated with the patient's clinical and laboratory status. The distal common bile d uct and pancreas are not visualized on this examination. 3. Mild splenomegaly. 4. 1.2 cm echogenic focus in the mid right renal cortex. This is nonspecific. An angiomyolipoma canno t this appearance. Giuseppe Liu MD on August 20, 2017 at 19:39 Board Certified Radiologist. This report was verified electronically.
[2017-08-20] MEDS ORDERED: SENNOSIDES 8.6 MG TAB PO PRN (21:00)
[2017-08-20] MEDS ORDERED: MAGNESIUM HYDROXIDE SUSP 30 ML CUP PO PRN (21:00)
[2017-08-20] MEDS: DOCUSATE SODIUM 50 MG/SENNA 8.6 MG TAB PO SCH (22:23)
[2017-08-20] MEDS: SODIUM CHLORIDE 0.9% FLUSH 10 ML FLUSH IV FLUSH SCH (22:24)
[2017-08-21] VITALS (9 sets, daily range): BP systolic 121–156; BP diastolic 51–64; PULSE 78–91; RESP 17–20; TEMP 96.9–98.4; O2SAT 95–99
[2017-08-21 04:06] LABS: AUTOMATED NEUTROPHIL # 2.3 TH/MM3 (1.8-7.7); BASOPHIL % 1.2 % (0.0-2.0); EOSINOPHIL # 0.1 TH/MM3 (0-0.4); EOSINOPHIL % 3.8 % (0.0-4.0); HEMATOCRIT 34.5 % (35.0-46.0); LYMPH % 22.4 % (9.0-44.0); LYMPHOCYTE # 0.8 TH/MM3 (1.0-4.8); MEAN CELL VOLUME 98.5 FL (80.0-100.0); MEAN CORPUSCULAR HGB CONC 35.5 % (32.0-36.0); MONO % 9.7 % (0.0-8.0); NEUT % 62.9 % (16.0-70.0); PLATELET COUNT 67 TH/MM3 (150-450); RED CELL DISTRIBUTION WIDTH 14.1 % (11.6-17.2); WHITE BLOOD COUNT 3.6 TH/MM3 (4.0-11.0)
[2017-08-21 04:20] LABS: INTERNATIONAL NORMALIZED RATIO 1.4 RATIO; PROTHROMBIN TIME - PATIENT 15.2 SEC (9.8-11.6)
[2017-08-21 04:28] LABS: TRANSFERRIN IRON PROFILE 176 MG/DL (200-360)
[2017-08-21 04:31] LABS: FERRITIN 125 NG/ML (8-252)
[2017-08-21 04:37] LABS: ALKALINE PHOSPHATASE 98 U/L (45-117); ALT (GPT) 19 U/L (10-53); ANION GAP 6 MEQ/L (5-15); AST (GOT) 37 U/L (15-37); BLOOD UREA NITROGEN 10 MG/DL (7-18); CHLORIDE 108 MEQ/L (98-107); GLOMERULAR FILTRATION RATE 54 ML/MIN (>89); POTASSIUM 3.6 MEQ/L (3.5-5.1); SODIUM (NA) 142 MEQ/L (136-145); TOTAL BILIRUBIN ADULT 3.9 MG/DL (0.2-1.0)
[2017-08-21 04:39] LABS: CREATINE KINASE 83 U/L (26-192)
[2017-08-21 04:40] LABS: HEMO FLAGS AUTO DIFF
[2017-08-21] MEDS: LEVOTHYROXINE SODIUM 50 MCG TAB PO SCH (05:24)
[2017-08-21 07:59] LABS: OVALOCYTES 1+ (NORMAL); PLATELET ESTIMATE SMEAR LOW (NORMAL); PLATELET MORPHOLOGY NORMAL (NORMAL); SCAN/DIFF AUTO DIFF CONFIRMED
[2017-08-21] MEDS: SODIUM CHLOR 0.9% 1000 ML INJ 1,000 ML IV SCH (08:34)
[2017-08-21] MEDS: RIFAXIMIN 550 MG TAB PO SCH ×2 (08:34→21:17)
[2017-08-21] MEDS: LACTULOSE SYRUP 20 GM/30 ML CUP PO SCH ×3 (08:34→18:15)
[2017-08-21] MEDS: CYANOCOBALAMIN 1,000 MCG TAB PO SCH (08:35)
[2017-08-21] MEDS: CITALOPRAM HYDROBROMIDE 40 MG TAB PO SCH (08:36)
[2017-08-21] MEDS: TRIAMTERENE/HCTZ 37.5 MG/25 MG CAP PO SCH (08:36)
[2017-08-21] MEDS: SODIUM CHLORIDE 0.9% FLUSH 10 ML FLUSH IV FLUSH SCH ×2 (08:37→21:00)
[2017-08-21] MEDS: DOCUSATE SODIUM 50 MG/SENNA 8.6 MG TAB PO SCH ×2 (08:37→21:00)
[2017-08-21] MEDS ORDERED: FERROUS SULFATE 325 MG (65 MG ELEMENTAL IRON) TAB PO SCH (09:00)
[2017-08-21] MEDS ORDERED: NON-FORMULARY DRUG (Biotin 10 MG) PO SCH (09:00)
--- NOTE | 2017-08-21 11:47 | HHI.GIFU ---
Subjective Remarks Pt in bed, chatting with OT. Tolerating diet, no nausea. (Ana Paula Herring) Objective Vitals I&O Vital Signs Date Time Temp Pulse Resp B/P (MAP) Pulse Ox O2 Delivery O2 Flow Rate FiO2 08/21/17 08:52 84 08/21/17 08:00 97.8 85 18 133/52 (79) 97 08/21/17 04:00 81 08/21/17 04:00 96.9 82 17 140/64 (89) 95 08/21/17 00:00 97.6 81 18 126/60 (82) 97 08/21/17 00:00 82 08/20/17 20:30 73 08/20/17 20:00 97.3 80 17 108/54 (72) 98 08/20/17 16:00 99.2 89 12 126/56 (79) 97 08/20/17 14:27 110/67 (81) 08/20/17 14:20 08/20/17 13:10 21 08/20/17 11:51 92 17 125/57 (79) 94 Room Air I/O 08/20/17 08/20/17 08/20/17 08/21/17 08/21/17 08/21/17 07:00 15:00 23:00 07:00 15:00 23:00 # Voids 2 2 # Bowel Movements 0 Laboratory Laboratory Tests Test 08/20/17 20:30 08/21/17 03:25 Total Creatine Kinase 87 83 Troponin I 0.02 LESS THAN 0.02 Tumor Marker Alpha Fetoprotein 1.8 Hepatitis A IgM Antibody NEGATIVE Hepatitis B Surface Antigen NEGATIVE Hepatitis B Core IgM Antibody NEGATIVE Hepatitis C Antibody NEGATIVE White Blood Count 3.6 Red Blood Count 3.50 Hemoglobin 12.3 Hematocrit 34.5 Mean Corpuscular Volume 98.5 Mean Corpuscular Hemoglobin 35.0 Mean Corpuscular Hemoglobin Concent 35.5 Red Cell Distribution Width 14.1 Platelet Count 67 Mean Platelet Volume 8.1 Neutrophils (%) (Auto) 62.9 Lymphocytes (%) (Auto) 22.4 Monocytes (%) (Auto) 9.7 Eosinophils (%) (Auto) 3.8 Basophils (%) (Auto) 1.2 Neutrophils # (Auto) 2.3 Lymphocytes # (Auto) 0.8 Monocytes # (Auto) 0.3 Eosinophils # (Auto) 0.1 Basophils # (Auto) 0.0 CBC Comment AUTO DIFF Differential Comment AUTO DIFF CONFIRMED Platelet Estimate LOW Platelet Morphology Comment NORMAL Ovalocytes 1+ Prothrombin Time 15.2 Prothromb Time International Ratio 1.4 Blood Urea Nitrogen 10 Creatinine 1.00 Random Glucose 86 Total Protein 5.9 Albumin 3.4 Calcium Level 8.8 Alkaline Phosphatase 98 Aspartate Amino Transf (AST/SGOT) 37 Alanine Aminotransferase (ALT/SGPT) 19 Total Bilirubin 3.9 Sodium Level 142 Potassium Level 3.6 Chloride Level 108 Carbon Dioxide Level 28.0 Anion Gap 6 Estimat Glomerular Filtration Rate 54 Iron Level 194 Total Iron Binding Capacity 246 Percent Iron Saturation 78.7 Ferritin 125 Ammonia 77 Imaging Last Impressions Head CT 08/20/17835 Signed Impressions: Service Date/Time: Sunday, August 20, 2017 09:09 - CONCLUSION: Stable brain appearance. No acute intracranial findings Giuspepe Young MD Chest X-Ray 08/20/17835 Signed Impressions: Service Date/Time: Sunday, August 20, 2017 08:48 - CONCLUSION: Cardiomegaly. No acute cardiopulmonary disease. Mehran Woodson MD Liver Ultrasound 08/20/17 0000 Signed Impressions: Service Date/Time: Sunday, August 20, 2017 18:45 - CONCLUSION: 1. Coarsened hepatic echotexture which suggests diffuse underlying processes. 2. Dilatation the common bile duct. This can be seen as reservoir phenomenon following cholecystectomy. This can be correlated with the patient's clinical and laboratory status. The distal common bile duct and pancreas are not visualized on this examination. 3. Mild splenomegaly. 4. 1.2 cm echogenic focus in the mid right renal cortex. This is nonspecific. An angiomyolipoma cannot this appearance. Giuseppe Liu MD Physical Exam HEENT: PERRL; normocephalic; atraumatic; +icterus CHEST: CTA CARDIAC: RRR ABDOMEN: Soft, nondistended, nontender; no hepatosplenomegaly; bowel sounds are present in all four quadrants. EXTREMITIES: No clubbing, cyanosis, LLE edema SKIN: Normal; no rash; no jaundice. MANAGER ENERGY: No focal deficits; alert and oriented times three. (Ana Paula Herring) Assessment and Plan Plan ASSESSMENT: - AMS, Elevated Ammonia in patient with suspected liver disease. She was started on Lactulose/Xifaxan. She has not actually received these yet, but is now alert and oriented x 3. Cont. lactulose/xifaxan. Will order liver workup. - Elevated LFTs, Labs consistent with cirrhosis. Pt has hx of ETOH abuse, drank heavily but cut back to only drinking on rare occasions 15-20 years ago. She has been referred to GI for suspected liver disease, but she has not followed up. T. Bili 4.1, AST 44, ALT 25, Alk Phosph 145. Plt 68,000. PT 13.8 , INR 1.2, APTT 32.9. Her labs are consistent with liver cirrhosis. AFP 1.8 serum iron 194H, TIBC 246L, sat 78.7H, ferritin 125. rest of w/u pending. MELD 15 US mild splenomegaly, suggestive cirrhosis, dilated CBD c/w cholecystectomy - Hepatic encephalopathy. Lactulose, Xifaxan. - Coagulopathy, Thrombocytopenia. Plt 68,000. PT 13.8, INR 1.2, APTT 32.9. She has been seen by hematology and he thought that this is most likely related to underlying liver disease, although there is a chance that it could be ITP. He had referred her to GI and wanted a liver biopsy as her hematology workup- ldh and bone marrow biopsy were unremarkable. - GERD, Nausea. States she has gerd and intermittent nausea, but is not currently having. She would benefit from EGD at some point for evaluation of GERD and to see if she has varices. Timing to be determined. - JIMMY, Hx CVA, Anxiety/Depression per attending. 08/21/17 - NH down a bit. pt alert and tolerating diet. AFP not elevated. US suggestive of cirrhosis, cholecystectomy, mild splenomegaly. rest of liver w/u pending. PLAN: - 2 gram low salt diet - await rest of liver w/u - Monitor CBC, PT/INR, CMP, Ammonia - Cont. Lactulose - Cont. Xifaxan - Cont. Pepcid - Supportive care - Further recommendations to follow based on results of above - Pt seen and examined by Dr. Villeda and myself and this note is written on her behalf (Ana Paula Herring SENIOR MEDICAL WRITER) Physician Comments seen, examined agree with above await labs we will order mrcp-mild dilated CBD most likely secondary cholecystectomy - needs further eval states her sister has liver issues-will call and get additional information, also states she was heavier and lost 4- lbs over the years , possible fatty liver at the origin of her cirrhosis elevated iron,iron saturation-we will do genetic testing for hemochromatosis stop laxatives other and Lomotil continue Lactulose/rifaximin will need egd/colon as an op if stable may dc in 1-2 days (Kay Villeda MD) Ana Paula Herring Aug 21, 2017 11:47 Kay Villeda MD Aug 21, 2017 22:53
--- NOTE | 2017-08-21 15:48 | HHI.PR ---
Subjective Remarks Feels much better. Wants to go home. States that she was only drinking heavily in the past when she was to her ex- but did cut down significantly. She states that she also has a sister who has liver disease since cirrhosis who did not have a history of alcohol use. She denies any other symptoms of coughing chills or fever. She feels much better and able to walk to the mouth without any difficulty. She has not followed up in the past to workup her liver disease. Objective Vitals Vital Signs Date Time Temp Pulse Resp B/P (MAP) Pulse Ox O2 Delivery O2 Flow Rate FiO2 08/21/17 12:00 97.6 83 18 156/60 (92) 98 08/21/17 08:52 84 08/21/17 08:00 97.8 85 18 133/52 (79) 97 08/21/17 04:00 81 08/21/17 04:00 96.9 82 17 140/64 (89) 95 08/21/17 00:00 97.6 81 18 126/60 (82) 97 08/21/17 00:00 82 08/20/17 20:30 73 08/20/17 20:00 97.3 80 17 108/54 (72) 98 08/20/17 16:00 99.2 89 12 126/56 (79) 97 I/O 08/20/17 08/20/17 08/20/17 08/21/17 08/21/17 08/21/17 07:00 15:00 23:00 07:00 15:00 23:00 # Voids 2 2 # Bowel Movements 0 Result Diagram: 08/21/17 0325 08/21/17 032 Other Results Item Value Date Time Ammonia 77 MCMOL/L H 08/21/17 0325 Total Bilirubin 3.9 MG/DL H 08/21/17 0325 Iron Level 194 MCG/DL H 08/21/17324 Total Iron Binding Capacity 246 MCG/DL L 08/21/17324 Percent Iron Saturation 78.7 % H 08/21/17324 Ferritin 125 NG/ML 08/21/17324 Total Protein 5.9 GM/DL L # 08/21/17 032 Imaging Last Impressions Head CT 08/20/17 0836 Signed Impressions: Service Date/Time: Sunday, August 20, 2017 09:09 - CONCLUSION: Stable brain appearance. No acute intracranial findings Giuseppe Young MD Chest X-Ray 08/20/17 0836 Signed Impressions: Service Date/Time: Sunday, August 20, 2017 08:48 - CONCLUSION: Cardiomegaly. No acute cardiopulmonary disease. Mehran Woodson MD Liver Ultrasound 08/20/17 0000 Signed Impressions: Service Date/Time: Sunday, August 20, 2017 18:45 - CONCLUSION: 1. Coarsened hepatic echotexture which suggests diffuse underlying processes. 2. Dilatation the common bile duct. This can be seen as reservoir phenomenon following cholecystectomy. This can be correlated with the patient's clinical and laboratory status. The distal common bile duct and pancreas are not visualized on this examination. 3. Mild splenomegaly. 4. 1.2 cm echogenic focus in the mid right renal cortex. This is nonspecific. An angiomyolipoma cannot this appearance. Giuseppe Liu MD Objective Remarks GENERAL: This is a well-nourished, well-developed patient, in no apparent distress. CARDIOVASCULAR: Regular rate and rhythm RESPIRATORY: Clear to auscultation. Breath sounds equal bilaterally. No wheezes , rales, or rhonchi. GASTROINTESTINAL: Abdomen soft, non-tender, nondistended. Normal active bowel sounds MUSCULOSKELETAL: Extremities without clubbing, cyanosis, or edema. NEURO: Alert & Oriented x4 to person, place, time, situation. Moves all ext x4 A/P Assessment and Plan 1. Acute Encephalopathy mostly secondary to Chronic Liver disease, with Hyperammonemia, probable hepatic encephalopathy started on Lactulose, improved clinically overnight therefore not trend ammonia levels. Further workup of her liver cirrhosis and chronic liver disease per GI and will likely need outpatient follow-up. Continue with Xifaxin 2. Liver cirrhosis, liver disease follow-up with Workup, MARIELA, Anca currently pending 3. CVA by historyno aspirin due to thrombocytopenia 4. GERD continue Ranitidine 5. Irritable Bowel Syndrome/Hemorrhoids -follow-up with GI as an outpatient. 6. Anxiety disorder and Depression continue Home medicines 7. History of blood clots, was on Warfarin, then Baby Aspirin now off this medicines due to Coagulopathy secondary to Liver disease, Thrombocytopenia now 67,000, older worker specialist following Doctor Ruperto Poole has an IVC filter. 8. Hypothyroidism on Levothyroxine Discontinue IV fluids DVT prophylaxis with SCDs. Anticoagulation contraindicated due to liver disease and thrombocytopenia Discharge Planning Possible discharge to home in the morning after completion of workup and if patient's mental status continues to improve and when cleared by GI. Krysten Schmitz MD Aug 21, 2017 15:48
[2017-08-21] MEDS: FERROUS SULFATE 325 MG (65 MG ELEMENTAL IRON) TAB PO SCH (18:15)
[2017-08-22] VITALS (8 sets, daily range): BP systolic 126–151; BP diastolic 56–69; PULSE 81–82; RESP 16–17; TEMP 97–98.1; O2SAT 95–98
[2017-08-22] MEDS: LEVOTHYROXINE SODIUM 50 MCG TAB PO SCH (06:10)
[2017-08-22] MEDS: FERROUS SULFATE 325 MG (65 MG ELEMENTAL IRON) TAB PO SCH (08:07)
[2017-08-22] MEDS: CYANOCOBALAMIN 1,000 MCG TAB PO SCH (08:07)
[2017-08-22] MEDS: CITALOPRAM HYDROBROMIDE 40 MG TAB PO SCH (08:07)
[2017-08-22] MEDS: RIFAXIMIN 550 MG TAB PO SCH (08:07)
[2017-08-22] MEDS: TRIAMTERENE/HCTZ 37.5 MG/25 MG CAP PO SCH (08:07)
[2017-08-22] MEDS: LACTULOSE SYRUP 20 GM/30 ML CUP PO SCH ×2 (08:08→12:43)
[2017-08-22] MEDS: DOCUSATE SODIUM 50 MG/SENNA 8.6 MG TAB PO SCH (08:08)
[2017-08-22] MEDS: SODIUM CHLORIDE 0.9% FLUSH 10 ML FLUSH IV FLUSH SCH (08:33)
[2017-08-22] MEDS ORDERED: DIATRIZOATE MEGLUM/DIATRIZOATE SOD 9 ML CUP PO ONE (12:15)
--- NOTE | 2017-08-22 15:15 | HHI.PR ---
Subjective Remarks Doing well. No other concerns. Wants to go home. States that she cannot have MRI due to stimulators in her back. She prefers follow-up as an outpatient for further evaluation and workup. Objective Vitals Vital Signs Date Time Temp Pulse Resp B/P (MAP) Pulse Ox O2 Delivery O2 Flow Rate FiO2 08/22/17 12:47 97.9 82 16 143/56 (85) 98 08/22/17 10:27 98 08/22/17 08:53 97.5 82 16 151/60 (90) 98 08/22/17 04:00 97.0 82 17 135/61 (85) 95 08/22/17 00:00 98.1 82 17 126/58 (80) 95 08/21/17 20:00 97.0 82 17 124/58 (80) 99 08/21/17 18:21 99 08/21/17 16:00 98.4 78 20 121/51 (74) 99 I/O 08/21/17 08/21/17 08/21/17 08/22/17 08/22/17 08/22/17 07:00 15:00 23:00 07:00 15:00 23:00 Intake Total 1440 ml Balance 1440 ml Intake Oral 1440 ml # Voids 2 7 # Bowel Movements 4 Result Diagram: 08/21/17 0325 08/21/17 0325 Other Results Item Value Date Time Anti-Smooth Muscle Antibody Negative 08/20/17 2030 Objective Remarks GENERAL: This is a well-nourished, well-developed patient, in no apparent distress. CARDIOVASCULAR: Regular rate and rhythm RESPIRATORY: Clear to auscultation. Breath sounds equal bilaterally. No wheezes , rales, or rhonchi. GASTROINTESTINAL: Abdomen soft, non-tender, nondistended. Normal active bowel sounds MUSCULOSKELETAL: Extremities without clubbing, cyanosis, or edema. NEURO: Alert & Oriented x4 to person, place, time, situation. Moves all ext x4 A/P Problem List: (1) Acute hepatic encephalopathy ICD Code: K72.00 - Acute and subacute hepatic failure without coma Status: Resolved (2) Liver cirrhosis ICD Code: K74.60 - Unspecified cirrhosis of liver Status: Chronic Assessment and Plan 1. Acute Encephalopathy mostly secondary to Chronic Liver disease, with Hyperammonemia, probable hepatic encephalopathy started on Lactulose, improved clinically overnight therefore will not trend ammonia levels. Further workup of her liver cirrhosis and chronic liver disease per GI and will likely need outpatient follow-up with Kevin colonoscopy. Continue with lactulose as outpatient. 2. Liver cirrhosis, liver disease follow-up with Workup, MARIELA, Anca currently pending ; unable to completely MRCP and will obtain CT abdomen pelvis fracture discharged a day and continue further workup with GI Dr. Villeda 3. CVA by history- no aspirin due to thrombocytopenia 4. GERD continue Ranitidine 5. Irritable Bowel Syndrome/Hemorrhoids -follow-up with GI as an outpatient. 6. Anxiety disorder and Depression continue Home medicines 7. History of blood clots, was on Warfarin, then Baby Aspirin now off this medicines due to Coagulopathy secondary to Liver disease, Thrombocytopenia now 67,000, communication specialist following Doctor Ruperto Poole has an IVC filter. 8. Hypothyroidism on Levothyroxine DVT prophylaxis with SCDs. Anticoagulation contraindicated due to liver disease and thrombocytopenia Discharge Planning Discharge to home Problem Qualifiers (1) Liver cirrhosis: Krysten Schmitz MD Aug 22, 2017 15:15
[2017-08-22] MEDS ORDERED: Lactulose Liq PO (15:22)
--- NOTE | 2017-08-22 15:23 | HHI.DCPOC ---
Discharge Care Plan Diagnosis: (1) Acute hepatic encephalopathy Goals to Promote Your Health * To prevent worsening of your condition and complications * To maintain your health at the optimal level Directions to Meet Your Goals Take your medications as prescribed Follow your dietary instruction Follow activity as directed Follow-up with Dr. Christiana BRYAN Keep your appointments as scheduled Take your immunizations and boosters as scheduled If your symptoms worsen call your PCP, if no PCP go to Urgent Care Center or Emergency Room Smoking is Dangerous to Your Health. Avoid second hand smoke Call the 24-hour hour crisis hotline for domestic abuse at Krysten Schmitz MD Aug 22, 2017 15:23
--- NOTE | 2017-08-22 15:30 | HHI.DS ---
Discharge Summary Admission Date Aug 20, 2017 at 12:47 Discharge Date: Aug 22, 2017 Admitting Diagnosis Acute hepatic encephalopathy (1) Acute hepatic encephalopathy ICD Code: K72.00 - Acute and subacute hepatic failure without coma Status: Resolved (2) Liver cirrhosis ICD Code: K74.60 - Unspecified cirrhosis of liver Status: Chronic Procedures None Brief History - From Admission Obtained from admitting physician's history and physical This is a pleasant 72 y/o Female seen in Emergency room after I was called to admit this patient by ER specialist, seen in the presence of her Mr. 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 has also a pain stimulator to be removed is not working, not recommended anticoagulation today found with Hyperammonemia in ER probable related to her Primary condition. She was seen on Friday08/18/17 by her Primary Care Physician Doctor Jack Christian was told to come to ER if continue worsening. CBC/BMP: 08/21/17 0325 08/21/17 0325 Significant Findings Laboratory Tests Test 08/20/17 08:45 08/20/17 09:50 08/20/17 09:52 08/20/17 20:30 White Blood Count 3.3 TH/MM3 (4.0-11.0) Mean Corpuscular Hemoglobin 34.6 PG (27.0-34.0) Platelet Count 68 TH/MM3 (150-450) Neutrophils (%) (Auto) 72.1 % (16.0-70.0) Lymphocytes # (Auto) 0.6 TH/MM3 (1.0-4.8) Platelet Estimate LOW (NORMAL) Ovalocytes 1+ (NORMAL) Prothrombin Time 13.8 SEC (9.8-11.6) Activated Partial Thromboplast Time 32.9 SEC (24.3-30.1) Creatinine 1.09 MG/DL (0.50-1.00) Alkaline Phosphatase 145 U/L (45-117) Aspartate Amino Transf (AST/SGOT) 44 U/L (15-37) Total Bilirubin 4.1 MG/DL (0.2-1.0) Estimat Glomerular Filtration Rate 49 ML/MIN (>89) Ammonia 93 MCMOL/L (11-32) Urine Turbidity HAZY (CLEAR) Urine Urobilinogen 4.0 MG/DL (LESS THAN Urine Mucus FEW /lpf (OCC) Test 08/21/17 03:25 08/22/17 10:44 White Blood Count 3.6 TH/MM3 (4.0-11.0) Red Blood Count 3.50 MIL/MM3 (4.00-5.30) Hematocrit 34.5 % (35.0-46.0) Mean Corpuscular Hemoglobin 35.0 PG (27.0-34.0) Platelet Count 67 TH/MM3 (150-450) Monocytes (%) (Auto) 9.7 % (0.0-8.0) Lymphocytes # (Auto) 0.8 TH/MM3 (1.0-4.8) Platelet Estimate LOW (NORMAL) Ovalocytes 1+ (NORMAL) Prothrombin Time 15.2 SEC (9.8-11.6) Total Protein 5.9 GM/DL (6.4-8.2) Total Bilirubin 3.9 MG/DL (0.2-1.0) Chloride Level 108 MEQ/L (98-107) Estimat Glomerular Filtration Rate 54 ML/MIN (>89) Iron Level 194 MCG/DL (50-170) Total Iron Binding Capacity 246 MCG/DL (250-450) Percent Iron Saturation 78.7 % (20-50) Ammonia 77 MCMOL/L (11-32) Troponin I LESS THAN 0.02 NG/ML Imaging Last Impressions Head CT 08/20/17 0836 Signed Impressions: Service Date/Time: Sunday, August 20, 2017 09:09 - CONCLUSION: Stable brain appearance. No acute intracranial findings Giuseppe Young MD Chest X-Ray 08/20/17 0836 Signed Impressions: Service Date/Time: Sunday, August 20, 2017 08:48 - CONCLUSION: Cardiomegaly. No acute cardiopulmonary disease. Mehran Woodson MD Liver Ultrasound 08/20/17 0000 Signed Impressions: Service Date/Time: Sunday, August 20, 2017 18:45 - CONCLUSION: 1. Coarsened hepatic echotexture which suggests diffuse underlying processes. 2. Dilatation the common bile duct. This can be seen as reservoir phenomenon following cholecystectomy. This can be correlated with the patient's clinical and laboratory status. The distal common bile duct and pancreas are not visualized on this examination. 3. Mild splenomegaly. 4. 1.2 cm echogenic focus in the mid right renal cortex. This is nonspecific. An angiomyolipoma cannot this appearance. Giuseppe Liu MD PE at Discharge GENERAL: This is a well-nourished, well-developed patient, in no apparent distress. CARDIOVASCULAR: Regular rate and rhythm RESPIRATORY: Clear to auscultation. Breath sounds equal bilaterally. No wheezes , rales, or rhonchi. GASTROINTESTINAL: Abdomen soft, non-tender, nondistended. Normal active bowel sounds MUSCULOSKELETAL: Extremities without clubbing, cyanosis, or edema. NEURO: Alert & Oriented x4 to person, place, time, situation. Moves all ext x4 Hospital Course 72-year-old white female presented to the emergency room with confusion was found to have likely acute hepatic encephalopathy responded well to lactulose and Xifaxin and had improved neurological exam during hospitalization. She was found to have liver cirrhosis and liver disease and GI service is consulted to assist with workup. She denies any current active history alcohol abuse however did have a past history of alcohol use. She reports that she will follow with GI for further outpatient evaluation. She is agreeable to obtaining CT abdomen pelvis prior to discharge to home. She was able to completely MRCP due to previous history of stimulator in her back. Her hepatitis profile is negative. At this time, patient is getting maximum benefit from hospitalization and is ready to be discharged home Pt Condition on Discharge: Good Discharge Disposition: Discharge Home Discharge Time: <= 30 minutes Discharge Instructions DIET: Follow Instructions for: As Tolerated, No Restrictions Activities you can perform: Regular-No Restrictions Follow up Referrals: Gastroenterology with Kay Villeda MD PCP Follow-up New Medications: [Lactulose Liq] () 30 ML SYRP 30 ML PO TID for help with liver for 30 Days, #1800 GM Continued Medications: Biotin (Biotin) 10 Mg Tab 10 MG PO DAILY for Nutritional Supplement, #1 BOTTLE 0 Refills Citalopram (Citalopram) 40 Mg Tab 40 MG PO DAILY for Control Depression, #30 TAB 0 Refills Cyanocobalamin (Vitamin B12) 500 Mcg Tab 1000 MCG PO DAILY, #1 BOTTLE Ferrous Sulfate (Ferrous Sulfate) 325 Mg (65 Mg Iron) Tablet 50 MG PO DAILY for Nutritional Supplement, #30 TAB 0 Refills Levothyroxine (Levothyroxine) 50 Mcg Tab 50 MCG PO DAILY for Thyroid, #30 TAB 0 Refills Ondansetron (Zofran) 4 Mg Tab 4 MG PO Q8HR PRN for NAUSEA OR VOMITING, TAB 0 Refills Phytonadione (Vitamin K) 100 Mcg Tab Unknown Dose PO DAILY Ranitidine (Zantac) 150 Mg Tab 150 MG PO DAILY PRN for REFLUX, #60 TAB 0 Refills Triamterene-Hydrochlorothiazide (Triamterene-Hydrochlorothiazide) 37.5-25 Mg Cap 1 CAP PO DAILY, #30 CAP 0 Refills Discontinued Medications: Loperamide (Loperamide) 2 Mg Cap 2 MG PO DIRECTED PRN for DIARRHEA, CAP 0 Refills One capsule after each loose stool. Not to exceed 8 capsules per day. Lorazepam (Lorazepam) 0.5 Mg Tab 0.5 MG PO HS PRN for ANXIETY AND/OR INSOMNIA, TAB 0 Refills Krysten Schmitz MD Aug 22, 2017 15:30
[2017-08-22] MEDS ORDERED: IOHEXOL 350 MG/ML 10 ML VIAL (for RAD DIAG) IVCONTRAST ONE (15:42)
--- NOTE | 2017-08-22 16:27 | RADRPT ---
EXAM DATE/TIME: 08/22/2017 15:23 [place] COMPARISON: No previous studies available for comparison. INDICATIONS : Cirrhosis. IV CONTRAST: 96 cc Omnipaque 350 (iohexol) IV ORAL CONTRAST: Prescribed oral contrast ingested. RADIATION DOSE: 10.82 CTDIvol (mGy) MEDICAL HISTORY : Stroke. Deep venous thrombosis. SURGICAL HISTORY : Appendectomy. Cholecystectomy.Hysterectomy.IVC filter, lumbar fusion, spinal stimulator ENCOUNTER: Initial ACUITY: 3 days PAIN SCALE: 0/10 LOCATION: upper quadrant TECHNIQUE: Volumetric scanning of the abdomen and pelvis was performed. Using automated exposure control and ad justment of the mA and/or kV according to patient size, radiation dose was kept as low as reasonably achievable to obtain optimal diagnostic quality images. DICOM format image data is available electro nically for review and comparison. FINDINGS: LOWER LUNGS: The visualized lower lungs are clear. LIVER: Liver is small with subtle nodular contour suggestive of hepatic cirrhosis. No significant intrahepat ic ductal dilatation. Small calcifications in the hepatic parenchyma consistent with prior right lumb ar disc disease. No gross focal mass. Gallbladder is surgically absent with slight prominence of the common bile duct likely due to reservoir effect. SPLEEN: Spleen is enlarged with massive splenorenal collaterals consistent with portal hypertension. The main portal vein is patent although small in caliber. PANCREAS: Within normal limits. KIDNEYS: Small subcentimeter hyperechoic lesion in the anterior mid right kidney is too small to fully charact erize. Kidneys otherwise demonstrate symmetrical enhancement without evidence for hydronephrosis or r adiopaque renal calculi. ADRENAL GLANDS: Within normal limits. VASCULAR: There is no aortic aneurysm. There is an IVC filter in place. BOWEL/MESENTERY: The stomach, small bowel, and colon demonstrate no acute abnormality. There is no free intraperitone al air or fluid. ABDOMINAL WALL: Within normal limits. RETROPERITONEUM: There is no lymphadenopathy. BLADDER: No wall thickening or mass. REPRODUCTIVE: Within normal limits. INGUINAL: There is no lymphadenopathy or hernia. MUSCULOSKELETAL: Right sided transpedicular screw fixation in the lumbar spine with neurostimulator in place. No abnor mal lytic or blastic bony lesions. CONCLUSION: 1. Cirrhotic liver with splenomegaly and massive splenorenal collaterals consistent with significant portal hypertension. Main portal vein is patent although small in caliber. No significant focal hepat ic mass. 2. Otherwise, no acute abnormality with ancillary findings, as above. Clemente Bozorgmanesh, MD on August 22, 2017 at 16:19 Board Certified Radiologist. This report was verified electronically.
[2017-08-22 17:38] LABS: ANA SCREEN NEG (NEG)
--- NOTE | 2017-08-22 18:10 | HHI.GIFU ---
GI Follow-up Note Consult Follow-up Subjective: Late entry.Patient seen early am Patient laying in bed comfortably , feeling better, discussed about lab results.Denies nausea, vomiting , abdominal pain. Objective: PHYSICAL EXAMINATION: Vitals signs stable No fever Vital Signs Date Time Temp Pulse Resp B/P (MAP) Pulse Ox O2 Delivery O2 Flow Rate FiO2 08/22/17 17:42 98 21 08/22/17 16:00 97.7 81 16 141/69 (93) 98 08/22/17 12:47 97.9 82 16 143/56 (85) 98 08/22/17 10:27 98 HEENT: Pupils round and reactive to light; normocephalic; atraumatic; no jaundice. Throat is clear. NECK: Neck is supple, no JVD, no lymphadenopathy. CHEST: Chest is clear to auscultation and percussion. CARDIAC: Regular rate and rhythm with no murmur gallop or rubs. ABDOMEN: Soft, nondistended, nontender; no hepatosplenomegaly; bowel sounds are present in all four quadrants. EXTREMITIES: No clubbing, cyanosis, left leg edema. SKIN: Normal; no rash; no jaundice. ACCOUNTS PAYABLE ADMINISTRATOR: No focal deficits; alert and oriented times three. Available Data (labs, X- Rays, Procedues) : Laboratory Tests Test 08/20/17 20:30 08/21/17 03:25 08/22/17 10:44 Total Creatine Kinase 87 U/L 83 U/L Troponin I 0.02 NG/ML LESS THAN 0.02 NG/ML Isrlq-2-Fqzsedghtbq 129 mg/dL Tumor Marker Alpha Fetoprotein 1.8 NG/ML Anti-Nuclear Antibody Screen NEG Anti-Smooth Muscle Antibody Negative Hepatitis A IgM Antibody NEGATIVE Hepatitis B Surface Antigen NEGATIVE Hepatitis B Core IgM Antibody NEGATIVE Hepatitis C Antibody NEGATIVE White Blood Count 3.6 TH/MM3 Red Blood Count 3.50 MIL/MM3 Hemoglobin 12.3 GM/DL Hematocrit 34.5 % Mean Corpuscular Volume 98.5 FL Mean Corpuscular Hemoglobin 35.0 PG Mean Corpuscular Hemoglobin Concent 35.5 % Red Cell Distribution Width 14.1 % Platelet Count 67 TH/MM3 Mean Platelet Volume 8.1 FL Neutrophils (%) (Auto) 62.9 % Lymphocytes (%) (Auto) 22.4 % Monocytes (%) (Auto) 9.7 % Eosinophils (%) (Auto) 3.8 % Basophils (%) (Auto) 1.2 % Neutrophils # (Auto) 2.3 TH/MM3 Lymphocytes # (Auto) 0.8 TH/MM3 Monocytes # (Auto) 0.3 TH/MM3 Eosinophils # (Auto) 0.1 TH/MM3 Basophils # (Auto) 0.0 TH/MM3 CBC Comment AUTO DIFF Differential Comment AUTO DIFF CONFIRMED Platelet Estimate LOW Platelet Morphology Comment NORMAL Ovalocytes 1+ Prothrombin Time 15.2 SEC Prothromb Time International Ratio 1.4 RATIO Blood Urea Nitrogen 10 MG/DL Creatinine 1.00 MG/DL Random Glucose 86 MG/DL Total Protein 5.9 GM/DL Albumin 3.4 GM/DL Calcium Level 8.8 MG/DL Alkaline Phosphatase 98 U/L Aspartate Amino Transf (AST/SGOT) 37 U/L Alanine Aminotransferase (ALT/SGPT) 19 U/L Total Bilirubin 3.9 MG/DL Sodium Level 142 MEQ/L Potassium Level 3.6 MEQ/L Chloride Level 108 MEQ/L Carbon Dioxide Level 28.0 MEQ/L Anion Gap 6 MEQ/L Estimat Glomerular Filtration Rate 54 ML/MIN Iron Level 194 MCG/DL Total Iron Binding Capacity 246 MCG/DL Percent Iron Saturation 78.7 % Ferritin 125 NG/ML Ammonia 77 MCMOL/L ASSESSMENT/PLAN: altered mental status -secondary hepatic encephalopathy hepatic encephalopathy resolved liver cirrhosis -etiology not clear -work-up in progress elevated iron-we will send hemochromatosis genetic testing states spoke with her sister-she just had fatty liver Recommendations mrcp cannot be done-pace maker not compatible ct abdomen/pelvis fu office in 2 weeks ok to dc home from [facility] continue lactulose/rifaximin avoid etoh, hepatotoxics It was a pleasure seeing Nina Clinton. Thank you for this consult. Entered by: Kay Tyler MD Aug 22, 2017 18:10
[2017-08-24 03:52] LABS: IGA SERUM 314 mg/dL (81-463)
[2017-08-24 03:52] LABS: MITOCHONDRIAL ABS 75.6 U (<=20.0)
[2017-08-25 03:51] LABS: ENDOMYSIAL AB TITER ND (<1:5); TISSUE TRANSGLUTAMINASE AB LESS THAN 1 U/mL (0-4)
[2017-08-29 08:07] LABS: HEREDITARY HEMOCHROM SPECIMEN WB Whole Blood
== END 2017-08-22 18:27 | disposition home or self-care (01) | DRG 441 ==
LOC: NEPC 08:25 → NEDA 12:47 → HOCA 14:30 → HOCB 15:44 → HOCA 16:00
PROVIDERS: ADMIT Family Medicine; ATTEND Family Medicine
DX: K72.00 Acute and subacute hepatic failure without coma (principal); G93.40 Encephalopathy, unspecified; N17.9 Acute kidney failure, unspecified; D69.3 Immune thrombocytopenic purpura; D68.4 Acquired coagulation factor deficiency; E03.9 Hypothyroidism, unspecified; K21.9 Gastro-esophageal reflux disease without esophagitis; K64.9 Unspecified hemorrhoids; K58.9 Irritable bowel syndrome, unspecified; F41.8 Other specified anxiety disorders; Z86.73 Personal history of transient ischemic attack (TIA), and cerebral infarction without residual deficits; Z96.652 Presence of left artificial knee joint; Z98.1 Arthrodesis status; I10 Essential (primary) hypertension; I51.7 Cardiomegaly; D69.59 Other secondary thrombocytopenia; K74.60 Unspecified cirrhosis of liver; Z85.3 Personal history of malignant neoplasm of breast
CPT/HCPCS: 70450; 71010; 74177; 76705; 80053; 80074; 81001; 81256; 82103; 82105; 82140; 82390; 82550; 82728; 82784; 83516; 83520; 83540; 83550; 84443; 84484; 85025; 85610; 85730; 86038; 86255; 93005; J7030; Q9963; Q9967

== ENCOUNTER → 2017-09-17 | Outpatient (CLI) | payer OTHER ==
[~2017-09-17] VITALS: Ht 166.6 cm; Wt 81.8 kg
[~2017-09-17] MED LIST changes: -BENT20TA PO; -BIOT10TA PO; +BIOT50006 PO; +CHLORHEXIDINE GLUCONATE 2 % 1 PACK (2 CLOTHS) TOPICAL PRN; -CLEO300C2 PO; -CPMMACHINE; +DEXTROSE 5%-LACTATED RING INJ 1,000 ML IV SCH; -FERR1TAB58 PO; +FERR325T8 PO; +INSULIN HUMAN REGULAR 1,000 UNITS/10 ML VIAL SQ PRN; +LACTATED RINGER'S 1000 ML IV PRN; +LIDOCAINE HCL 1% PF 5 ML AMPULE OTHER ONE; -LOPE2CAP PO; -LORA-373 PO; +Lactulose Liq PO; +METOPROLOL TARTRATE 25 MG TAB PO PRN; +OMEP20TA PO; -OXYC-395 PO; -OXYC1CAP PO; -POTA550T2 PO; +POVIDONE IODINE 5% (ANTISEPSIS KIT) 4 APPLICATIONS EACH NARE PRN; +PROPOFOL 200 MG/20 ML AMP IV ONE; +SODIUM CHLORID 0.9% 500 ML IV PRN; +VITA2000 PO; -ZOFR4TAB PO
[2017-09-17 07:21] LABS: AUTOMATED NEUTROPHIL # 1.8 TH/MM3 (1.8-7.7); BASOPHIL % 1.3 % (0.0-2.0); EOSINOPHIL # 0.1 TH/MM3 (0-0.4); EOSINOPHIL % 3.8 % (0.0-4.0); HEMATOCRIT 33.5 % (35.0-46.0); HEMOGLOBIN 11.6 GM/DL (11.6-15.3); LYMPH % 22.9 % (9.0-44.0); LYMPHOCYTE # 0.7 TH/MM3 (1.0-4.8); MEAN CELL VOLUME 98.7 FL (80.0-100.0); MEAN CORPUSCULAR HEMOGLOBIN 34.3 PG (27.0-34.0); MEAN CORPUSCULAR HGB CONC 34.7 % (32.0-36.0); MEAN PLATELET VOLUME 8.4 FL (7.0-11.0); MONOCYTE # 0.2 TH/MM3 (0-0.9); PLATELET COUNT 57 TH/MM3 (150-450); RED BLOOD COUNT 3.39 MIL/MM3 (4.00-5.30); RED CELL DISTRIBUTION WIDTH 14.6 % (11.6-17.2); WHITE BLOOD COUNT 2.9 TH/MM3 (4.0-11.0)
[2017-09-17 07:34] LABS: INTERNATIONAL NORMALIZED RATIO 1.3 RATIO
[2017-09-17 07:46] LABS: ALBUMIN 3.4 GM/DL (3.4-5.0); AST (GOT) 50 U/L (15-37); BLOOD UREA NITROGEN 12 MG/DL (7-18); CALCIUM 8.3 MG/DL (8.5-10.1); CHLORIDE 113 MEQ/L (98-107); GLOMERULAR FILTRATION RATE 61 ML/MIN (>89); GLUCOSE,RANDOM 83 MG/DL (74-106); SODIUM (NA) 145 MEQ/L (136-145)
[2017-09-17 07:47] LABS: ALT (GPT) 35 U/L (10-53)
[2017-09-17 07:49] LABS: ALKALINE PHOSPHATASE 121 U/L (45-117); TOTAL BILIRUBIN ADULT 2.2 MG/DL (0.2-1.0); TOTAL PROTEIN 5.8 GM/DL (6.4-8.2)
[2017-09-17 08:04] LABS: OVALOCYTES 1+ (NORMAL)
--- NOTE | 2017-09-17 09:34 | GIPROC ---
[facility] [address] [facility]. [facility], [address] EGD PROCEDURE REPORT EXAM DATE: 09/17/2017 PATIENT NAME: Nina Clinton MR #: [id number] BIRTHDATE: 1945 ATTENDING: Kay Villeda MD ORDER #: [id number] FIRER PORTABLE BOILER: Aissatou Reddy and Corine Perez STATUS: outpatient INDICATIONS: The patient is a 72 yr old female here for an EGD due to liver cirrhosis, screening for esophgeal varices PROCEDURE PERFORMED: EGD w/ biopsy MEDICATIONS: None and Per Anesthesia. TOPICAL ANESTHETIC: none CONSENT: The patient understands the risks and benefits of the procedure and understands that these risks include, but are not limited to: sedation, allergic reaction, infection, perforation and/or bleeding. Alternative means of evaluation and treatment include, among others: physical exam, x-rays, and/or surgical intervention. The patient elects to proceed with this endoscopic procedure. medical equipment was checked for proper function. Hand hygiene and appropriate measures for infection prevention was taken. After the risks, benefits and alternatives of the procedure were thoroughly explained, Informed consent was verified, confirmed and timeout was successfully executed by the treatment team. The patient was anesthetized with topical anesthesia and the Pentax EG-[id number] endoscope was introduced through the mouth and advanced to the second portion of the duodenum. Retroflexed views revealed a hiatal hernia The gastroscope was then slowly withdrawn and removed. Duodenum normal -biopsy to r/ celiac duodenal bulb diverticulum portal gastropathy gastritis antrum-biopsy esophagitis distal esophagus -biopsy. ADVERSE EVENTS: There were no complications. IMPRESSIONS: 1. Duodenum normal -biopsy to r/ celiac duodenal bulb diverticulum portal gastropathy gastritis antrum-biopsy esophagitis distal esophagus -biopsy 2. Retroflexed views revealed a hiatal hernia RECOMMENDATIONS: 1. Await biopsy results. Biopsy results will not be ready for 7-10 days. If you don't hear from us in two weeks, call our office for biopsy results. 2. Anti-reflux regimen PATIENT CONDITION: stable DISPOSITION: Home REPEAT EXAM: Return 2 years EGD Kay Villeda MD eSigned: Kay Villeda MD 09/17/2017 9:34 AM cc: PATIENT NAME: Nina Clinton MR#: [id number]
--- NOTE | 2017-09-17 09:34 | GIPROC ---
[facility] [address] [facility]. [facility], [address] EGD PROCEDURE REPORT EXAM DATE: 09/17/2017 PATIENT NAME: Nina Clinton MR #: [id number] BIRTHDATE: 1945 ATTENDING: Kay Villeda MD ORDER #: [id number] STRUCTURAL RIGGER: Aissatou Reddy and Corine Perez STATUS: outpatient INDICATIONS: The patient is a 72 yr old female here for an EGD due to liver cirrhosis, screening for esophgeal varices PROCEDURE PERFORMED: EGD w/ biopsy MEDICATIONS: None and Per Anesthesia. TOPICAL ANESTHETIC: none CONSENT: The patient understands the risks and benefits of the procedure and understands that these risks include, but are not limited to: sedation, allergic reaction, infection, perforation and/or bleeding. Alternative means of evaluation and treatment include, among others: physical exam, x-rays, and/or surgical intervention. The patient elects to proceed with this endoscopic procedure. medical equipment was checked for proper function. Hand hygiene and appropriate measures for infection prevention was taken. After the risks, benefits and alternatives of the procedure were thoroughly explained, Informed consent was verified, confirmed and timeout was successfully executed by the treatment team. The patient was anesthetized with topical anesthesia and the Pentax [id number] endoscope was introduced through the mouth and advanced to the second portion of the duodenum. Retroflexed views revealed a hiatal hernia The gastroscope was then slowly withdrawn and removed. Duodenum normal -biopsy to r/ celiac duodenal bulb diverticulum portal gastropathy gastritis antrum-biopsy esophagitis distal esophagus -biopsy. ADVERSE EVENTS: There were no complications. IMPRESSIONS: 1. Duodenum normal -biopsy to r/ celiac duodenal bulb diverticulum portal gastropathy gastritis antrum-biopsy esophagitis distal esophagus -biopsy 2. Retroflexed views revealed a hiatal hernia RECOMMENDATIONS: 1. Await biopsy results. Biopsy results will not be ready for 7-10 days. If you don't hear from us in two weeks, call our office for biopsy results. 2. Anti-reflux regimen PATIENT CONDITION: stable DISPOSITION: Home REPEAT EXAM: Return 2 years EGD Kay Villeda MD eSigned: Kay Villeda MD 09/17/2017 9:34 AM cc: PATIENT NAME: Nina Clinton MR#: [id number]
--- NOTE | 2017-09-17 09:34 | GIPROC ---
[facility] [address] [facility]. [facility], [address] EGD PROCEDURE REPORT EXAM DATE: 09/17/2017 PATIENT NAME: Nina Clinton MR #: [id number] BIRTHDATE: 1945 ATTENDING: Kay Villeda MD ORDER #: [id number] NEEDLE MAKER: Aissatou Reddy and Corine Perez STATUS: outpatient INDICATIONS: The patient is a 72 yr old female here for an EGD due to liver cirrhosis, screening for esophgeal varices PROCEDURE PERFORMED: EGD w/ biopsy MEDICATIONS: None and Per Anesthesia. TOPICAL ANESTHETIC: none CONSENT: The patient understands the risks and benefits of the procedure and understands that these risks include, but are not limited to: sedation, allergic reaction, infection, perforation and/or bleeding. Alternative means of evaluation and treatment include, among others: physical exam, x-rays, and/or surgical intervention. The patient elects to proceed with this endoscopic procedure. medical equipment was checked for proper function. Hand hygiene and appropriate measures for infection prevention was taken. After the risks, benefits and alternatives of the procedure were thoroughly explained, Informed consent was verified, confirmed and timeout was successfully executed by the treatment team. The patient was anesthetized with topical anesthesia and the Pentax [id number] endoscope was introduced through the mouth and advanced to the second portion of the duodenum. Retroflexed views revealed a hiatal hernia The gastroscope was then slowly withdrawn and removed. Duodenum normal -biopsy to r/ celiac duodenal bulb diverticulum portal gastropathy gastritis antrum-biopsy esophagitis distal esophagus -biopsy. ADVERSE EVENTS: There were no complications. IMPRESSIONS: 1. Duodenum normal -biopsy to r/ celiac duodenal bulb diverticulum portal gastropathy gastritis antrum-biopsy esophagitis distal esophagus -biopsy 2. Retroflexed views revealed a hiatal hernia RECOMMENDATIONS: 1. Await biopsy results. Biopsy results will not be ready for 7-10 days. If you don't hear from us in two weeks, call our office for biopsy results. 2. Anti-reflux regimen PATIENT CONDITION: stable DISPOSITION: Home REPEAT EXAM: Return 2 years EGD Kay Villeda MD eSigned: Kay Villeda MD 09/17/2017 9:34 AM cc: PATIENT NAME: Nina Clinton MR#: [id number]
[2017-09-17 09:38] VITALS: TEMP 98.3
[2017-09-17 10:00] VITALS: BP 124/80; PULSE 77; RESP 18; O2SAT 99
== END ==
LOC: HSDC 05:44
PROVIDERS: ATTEND Internal Medicine Gastroenterology
DX: K74.60 Unspecified cirrhosis of liver (principal); K52.9 Noninfective gastroenteritis and colitis, unspecified; K29.70 Gastritis, unspecified, without bleeding; K44.9 Diaphragmatic hernia without obstruction or gangrene
CPT/HCPCS: 00740; 43239; 80053; 82140; 85025; 85610; 88305; J7120